=== PATIENT | male | born 1940 | race Caucasian/White ===

== ENCOUNTER → 2017-08-02 14:29 | Outpatient (POV) | payer MEDICARE, SELFPAY | PROVIDERS: Family Provider Family Medicine; PCP Family Medicine; Visit Provider Dermatology | DX: Z00.00 Encounter for general adult medical examination without abnormal findings (principal) ==

== ENCOUNTER → 2017-12-06 08:40 | Outpatient (CLI) | payer MEDICARE, SELFPAY | PROVIDERS: Family Provider Family Medicine; PCP Family Medicine; Visit Provider Family Medicine | DX: I20.8 Other forms of angina pectoris (principal); E11.65 Type 2 diabetes mellitus with hyperglycemia | CPT/HCPCS: 93017 ==

== ENCOUNTER → 2018-08-06 10:12 | Outpatient (POV) | payer MEDICARE, SELFPAY | PROVIDERS: Visit Provider Dermatology | DX: Z00.00 Encounter for general adult medical examination without abnormal findings (principal) ==

== ENCOUNTER → 2018-09-03 08:57 | Outpatient (POV) | payer MEDICARE, SELFPAY | PROVIDERS: Visit Provider Dermatology | DX: Z00.00 Encounter for general adult medical examination without abnormal findings (principal) ==

== ENCOUNTER → 2018-12-07 10:32 | Outpatient (CLI) | payer MEDICARE, SELFPAY ==
--- NOTE | 2018-12-07 10:44 | XR_ITS ---
XR shoulder RT min 2V HISTORY: ITS.REASON: acute pain of right shoulder ORDERING PHYSICIAN: Bridget Fernandez APRN PATIENT AGE: 78 years FINDINGS: There are mild osteoarthritic changes of the right acromioclavicular joint with subacromial stenosis which may result in impingement symptomatology. Minimal osteoarthritic change glenohumeral joint. No significant change from 11/09/2015. 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
== END ==
PROVIDERS: PCP Family Medicine; Visit Provider Nurse Practitioner
DX: M25.511 Pain in right shoulder (principal)
CPT/HCPCS: 73030

== ENCOUNTER → 2019-02-06 14:58 | Outpatient (CLI) | payer MEDICARE, SELFPAY ==
--- NOTE | 2019-02-06 15:13 | CT_ITS ---
PROCEDURE: CT ABDOMEN PELVIS WO CON CLINICAL HISTORY: RT FLANK PAIN,H/O STONES Right flank pain COMPARISON: No exams were available for comparison TECHNIQUE: Axial images obtained with sagittal and coronal reformats. All CT scans at the facility use one or more dose reduction, viz: automated exposure control, ma/kV adjustment per patient size (including targeted exams where dose is matched to indication, i.e. head), or iterative reconstruction technique. FINDINGS: There is mild fatty liver infiltration. No focal liver lesions identified. The gallbladder, spleen, adrenal glands, and pancreas have an unremarkable appearance. No renal or ureteral calculi. There are few small nodes in the perigastric region. The stomach has an unremarkable appearance. Unremarkable appendix. No intestinal obstruction or free air is evident. The there are few diverticula of the colon but no evidence of diverticulitis. There is a tiny umbilical hernia containing fat. The prostate is enlarged at 7.6 x 5.7 cm. A faint area of increased density is present along the posterior urinary bladder wall on the left and could be due to small stone or calcification within the wall of the urinary bladder. There are degenerative changes of lumbar spine with old wedge compression changes of L2. IMPRESSION: 1. No acute abdominal or pelvic findings 2. Enlarged prostate 3. Small area of calcification along the urinary bladder wall on the left posteriorly and may be due to recently passed stone versus faint calcification in the wall the urinary bladder. Dictated by: Kev Bhardwaj MD 02/07/2019 06:19 Electronically signed by Kev Bhardwaj MD in [place] 02/07/2019 06:19
== END ==
PROVIDERS: PCP Family Medicine; Visit Provider Family Medicine
DX: R10.9 Unspecified abdominal pain (principal); Z87.442 Personal history of urinary calculi
CPT/HCPCS: 74176

== ENCOUNTER → 2019-07-31 15:40 | Outpatient (CLI) | payer MEDICARE, SELFPAY ==
--- NOTE | 2019-07-31 15:43 | CA_ITS ---
APPROVED REPORT Bilateral Lower Extremity Venous Study for DVT. Sock Folder: TONI Indications Lower Extremity Pain: Lower Extremity Edema: Left Edema Vein Imaging CFV (L): compressive, spontaneous, phasic, augmentation SFJ (L): compressive, spontaneous, phasic, augmentation FEM (L): compressive, spontaneous, phasic, augmentation POP (L): compressive, spontaneous, phasic, augmentation DFV (L): compressive, spontaneous, phasic, augmentation PTV (L): Compressible GSV (L): Compressible Peroneals (L):Compressible Findings SMALL SUPERFICIAL THROMBUS AT ANKLE AREA NEAGATIVE FOR DVT OR OTHER SVT'S CALLED REPORT TO MD OCTAVIO Conclusion SMALL SUPERFICIAL THROMBUS AT ANKLE AREA NEAGATIVE FOR DVT OR OTHER SVT'S Electronically signed by : Kev Bhardwaj MD 07/31/2019 17:44:06
== END ==
PROVIDERS: PCP Family Medicine; Visit Provider Podiatrist
DX: R60.0 Localized edema (principal); R09.89 Other specified symptoms and signs involving the circulatory and respiratory systems
CPT/HCPCS: 93971

== ENCOUNTER → 2019-08-06 10:49 | Outpatient (CLI) | payer MEDICARE, SELFPAY ==
--- NOTE | 2019-08-06 10:51 | US_ITS ---
APPROVED REPORT Exam Type: Lower Extremity Segmental Pressures [employer] Administrator: Heavenly Pickens RDCS Indications Rest Pain: DECREASED PULSES Risk Factors Diabetes Pressures/Indices Right Indices Left Indices Brachial 200.00 mmHg Brachial 184.00 mmHg Low Thigh 194.00 mmHg 0.97 Low Thigh 180.00 mmHg 0.90 Calf 220.00 mmHg 1.10 Calf 0.00 mmHg 0.00 Ankle(PT) 218.00 mmHg 1.09 Ankle(PT) 193.00 mmHg 0.97 Ankle(DP) 196.00 mmHg 0.98 Ankle(DP) 168.00 mmHg 0.84 Digit 101.00 mmHg 0.51 Digit 101.00 mmHg 0.51 Findings R DALILA 1.1 L DALILA 1.0 R TBI .5 L TBI .5 DIMINISHED PULSES AT DORSALIS PEDIS OTHERWISE NORMAL PULSES NORMAL WAVEFORMS Conclusion Normal DALILA's Slightly low TBI's suggesting small vessel disease Electronically signed by : Kev Bhardwaj MD 08/06/2019 19:56:55
== END ==
PROVIDERS: PCP Family Medicine; Visit Provider Podiatrist
DX: R09.89 Other specified symptoms and signs involving the circulatory and respiratory systems (principal)
CPT/HCPCS: 93923

== ENCOUNTER → 2019-10-21 08:25 | Outpatient (POV) | payer MEDICARE, SELFPAY | PROVIDERS: PCP Family Medicine; Visit Provider Physician Assistant | DX: Z00.00 Encounter for general adult medical examination without abnormal findings (principal) ==

== ENCOUNTER → 2020-05-25 12:59 | Outpatient (CLI) | payer MEDICARE, SELFPAY ==
[2020-05-25 13:43] LABS: Basophils # 0.1 K/mm3 (0-0.2); Eosinophils # 0.1 K/mm3 (0.0-0.4); Eosinophils % 2.5 % (0.1-12.0); Hematocrit 48.5 % (42.0-52.0); Hemoglobin 16.1 g/dL (14.1-18.0); Lymphocytes # 1.4 K/mm3 (0.7-4.5); Lymphocytes % 26.3 % (10-50); Mean Corpuscular HGB Conc 33.3 g/dL (31.8-35.4); Mean Corpuscular Hemoglobin 32.4 pg (27.0-31.2); Mean Corpuscular Volume 97.4 fl (80-94); Mean Platelet Volume 8.5 fl (7.4-10.4); Monocytes # 0.3 K/mm3 (0.1-1.0); Monocytes % 5.9 % (1.7-9.3); Neutrophils # 3.3 K/mm3 (1.8-7.8); Neutrophils % 64.3 % (37.0-80.0); Platelet Count 175 K/mm3 (142-424); Red Blood Count 4.98 M/mm3 (4.60-6.20); Red Cell Distribution Width 14.1 % (11.5-17.5); White Blood Count 5.2 K/mm3 (4.8-10.8)
[2020-05-25 13:46] LABS: Chloride 106 mmol/L (98-107); Potassium 4.7 mmoL/L (3.5-5.1); Sodium 142 mmol/L (136-145)
[2020-05-25 13:48] LABS: Blood Urea Nitrogen 16 mg/dl (9-20); Estimated Glomerular Filt Rate 59 ml/min (>60); GFR (African American) 71 ML/MIN (>60)
[2020-05-25 13:49] LABS: Alanine Aminotransferase 27 U/L (12-78); Albumin Level 4.7 g/dl (3.5-5.0); Albumin/Globulin Ratio 1.6 (1.1-1.8); Alkaline Phosphatase 58 U/L (38-126); Anion Gap 11.7 mEq/L (5-15); Aspartate Amino Transferase 25 U/L (17-59); Bilirubin,Total 0.9 mg/dl (0.2-1.3); Calcium 9.7 mg/dl (8.4-10.2); Carbon Dioxide 29 mmol/L (22.0-30.0); Cholesterol 147 mg/dl (140-200); Globulin 2.9 g/dL (1.3-3.2); Glucose 138 mg/dl (74-100); HDL Cholesterol 37 mg/dl (40-60); Total Protein,Serum 7.6 g/dl (6.3-8.2); Triglycerides 223 mg/dl (30-150); VLDL Cholesterol 45 mg/dL (0-40)
[2020-05-25 14:00] LABS: Direct LDL Cholesterol 73.84 mg/dL (100-129)
[2020-05-25 15:02] LABS: Hemoglobin A1C 7.2 % (4.0-6.0)
== END ==
PROVIDERS: Visit Provider Internal Medicine Adolescent Medicine
DX: E11.9 Type 2 diabetes mellitus without complications (principal); Z79.84 Long term (current) use of oral hypoglycemic drugs
CPT/HCPCS: 36415; 80053; 80061; 83036; 85025

== ENCOUNTER → 2020-05-27 08:15 | Outpatient (CLI) | payer MEDICARE, SELFPAY ==
--- NOTE | 2020-05-27 08:18 | CT_ITS ---
PROCEDURE: CT HEAD/BRAIN WO CON CLINICAL INDICATION: LT SIDED WEAKNESS COMPARISON: No exams were available for comparison TECHNIQUE: Axial images obtained. All CT scans at the facility use one or more dose reduction, viz: automated exposure control, ma/kV adjustment per patient size (including targeted exams where dose is matched to indication, i.e. head), or iterative reconstruction technique. FINDINGS: No midline shift, mass effect, intracranial hemorrhage, hydrocephalus, or extra-axial fluid collection is evident. There is generalized atrophy with hypoattenuation of the periventricular white matter consistent with microangiopathic changes. There are intracranial vascular calcifications noted the calvarium has an unremarkable appearance. No mastoid effusion. There is mucosal thickening of the sphenoid sinus. IMPRESSION: No acute intracranial finding Dictated by: Kev Bhardwaj MD 05/27/2020 08:52 Kev Bhardwaj MD in [place] 05/27/2020 08:52
== END ==
PROVIDERS: PCP Internal Medicine Adolescent Medicine; Visit Provider Internal Medicine Adolescent Medicine
DX: R53.1 Weakness (principal)
CPT/HCPCS: 70450

== ENCOUNTER → 2020-10-19 16:32 | Outpatient (CLI) | payer MEDICARE, SELFPAY ==
[2020-10-19 17:22] LABS: Hemoglobin A1C 7.3 % (4.0-6.0)
[2020-10-19 17:24] LABS: Chloride 104 mmol/L (98-107)
[2020-10-19 17:25] LABS: Potassium 4.4 mmoL/L (3.5-5.1); Sodium 138 mmol/L (136-145)
[2020-10-19 17:27] LABS: Alanine Aminotransferase 25 U/L (12-78); Aspartate Amino Transferase 26 U/L (17-59); Bilirubin,Total 0.7 mg/dl (0.2-1.3); Blood Urea Nitrogen 16 mg/dl (9-20); Estimated Glomerular Filt Rate 72 ml/min (>60); GFR (African American) 88 ML/MIN (>60)
[2020-10-19 17:28] LABS: Albumin Level 4.6 g/dl (3.5-5.0); Albumin/Globulin Ratio 1.8 (1.1-1.8); Alkaline Phosphatase 81 U/L (38-126); Anion Gap 13.4 mEq/L (5-15); Calcium 9.3 mg/dl (8.4-10.2); Carbon Dioxide 25 mmol/L (22.0-30.0); Globulin 2.5 g/dL (1.3-3.2); Glucose 161 mg/dl (74-100); Total Protein,Serum 7.1 g/dl (6.3-8.2)
[2020-10-19 17:58] LABS: Thyroid Stimulating Hormone 1.85 uIU/mL (0.465-4.68)
== END ==
PROVIDERS: Visit Provider Internal Medicine Adolescent Medicine
DX: E11.9 Type 2 diabetes mellitus without complications (principal); R53.83 Other fatigue; Z79.84 Long term (current) use of oral hypoglycemic drugs
CPT/HCPCS: 36415; 80053; 83036; 84443

== ENCOUNTER → 2020-11-02 12:15 | Outpatient (CLI) | payer MEDICARE, SELFPAY | LOC: RT 12:19 → SL 13:22 | PROVIDERS: PCP Internal Medicine Adolescent Medicine; Visit Provider Internal Medicine Adolescent Medicine | DX: G47.33 Obstructive sleep apnea (adult) (pediatric) (principal); R40.0 Somnolence | CPT/HCPCS: G0399 ==

== ENCOUNTER → 2021-02-01 09:33 | Outpatient (CLI) | payer MEDICARE, SELFPAY ==
[2021-02-01 10:41] LABS: Hemoglobin A1C 7.3 % (4.0-6.0)
[2021-02-01 11:07] LABS: Alanine Aminotransferase 25 U/L (12-78); Albumin/Globulin Ratio 1.7 (1.1-1.8); Alkaline Phosphatase 66 U/L (38-126); Anion Gap 16.3 mEq/L (5-15); Aspartate Amino Transferase 22 U/L (17-59); Bilirubin,Total 0.8 mg/dl (0.2-1.3); Blood Urea Nitrogen 13 mg/dl (9-20); Calcium 8.8 mg/dl (8.4-10.2); Carbon Dioxide 24 mmol/L (22.0-30.0); Chloride 101 mmol/L (98-107); Chol/HDL Ratio 4.2 (1-3.5); Cholesterol 130 mg/dl (140-200); Estimated Glomerular Filt Rate 93 ml/min (>60); GFR (African American) 113 ML/MIN (>60); Globulin 2.4 g/dL (1.3-3.2); Glucose 239 mg/dl (74-100); HDL Cholesterol 31 mg/dl (40-60); Potassium 4.3 mmoL/L (3.5-5.1); Sodium 137 mmol/L (136-145); Total Protein,Serum 6.4 g/dl (6.3-8.2); Triglycerides 198 mg/dl (30-150); VLDL Cholesterol 40 mg/dL (0-40)
[2021-02-01 11:17] LABS: Direct LDL Cholesterol 68.07 mg/dL (100-129)
== END ==
PROVIDERS: Visit Provider Internal Medicine Adolescent Medicine
DX: E11.9 Type 2 diabetes mellitus without complications (principal); Z79.84 Long term (current) use of oral hypoglycemic drugs
CPT/HCPCS: 36415; 80053; 80061; 83036

== ENCOUNTER → 2021-02-08 12:35 | Outpatient (CLI) | payer MEDICARE, SELFPAY ==
[2021-02-08 13:30] VITALS: PULSE 64; PULSE 66
== END ==
PROVIDERS: PCP Internal Medicine Adolescent Medicine; Visit Provider Internal Medicine Adolescent Medicine
DX: R06.02 Shortness of breath (principal)
CPT/HCPCS: 94060; 94640; 94727; 94729

== ENCOUNTER → 2021-02-14 13:21 | Outpatient (CLI) | payer MEDICARE, SELFPAY | PROVIDERS: PCP Internal Medicine Adolescent Medicine; Visit Provider Nurse Practitioner | DX: Z20.822 Contact with and (suspected) exposure to COVID-19 (principal) | CPT/HCPCS: C9803; U0003; U0005 ==

== ENCOUNTER → 2021-03-18 14:36 | Outpatient (CLI) | payer MEDICARE, SELFPAY ==
--- NOTE | 2021-03-18 14:39 | XR_ITS ---
PROCEDURE: XR KNEE LT 3V CLINICAL INDICATION: LT knee pain COMPARISON: CR [id number] KNEE-LIMITED 2 VIEWS-LT from 01/19/2015 CR [id number] KNEE-LIMITED 2 VIEWS-RT from 03/08/2015 CR [id number] KNEE-LIMITED 2 VIEWS-RT from 03/23/2015 CR [id number] KNEE-LIMITED 2 VIEWS-LT from 03/23/2016 FINDINGS: There has been a prior left medial hemiarthroplasty which appears in good position with no obvious orthopedic complications. There are moderate ostial arthritic changes of the left knee with cyst spurs at the tibial spines noted. There is a 7 mm calcific density projecting over posterior lateral aspect of the knee consistent with a loose body. There are numerous calcifications posterior to the distal femur also suspicious for loose calcific bodies. There is a small knee joint effusion. Moderate osteoarthritic changes are present at the patellofemoral joint and has progressed since the previous exam. An additional loose body noted just medial to the medial tibial spine. IMPRESSION: Status post medial desire arthroplasty with no obvious orthopedic complications. Progressing osteoarthritis with multiple loose bodies medially which have developed since the previous exam Dictated by: Kev Bhardwaj MD 03/18/2021 15:35 Kev Bhardwaj MD in [place] 03/18/2021 15:35
== END ==
PROVIDERS: PCP Internal Medicine Adolescent Medicine; Visit Provider Orthopaedic Surgery
DX: M25.562 Pain in left knee (principal)
CPT/HCPCS: 73562

== ENCOUNTER → 2021-03-18 15:51 | Outpatient (CLI) | payer MEDICARE, SELFPAY ==
[2021-03-18 16:18] LABS: Basophils # 0.1 K/mm3 (0-0.2); Basophils % 1.2 % (0.1-2.0); Eosinophils # 0.2 K/mm3 (0.0-0.4); Eosinophils % 2.3 % (0.1-12.0); Hemoglobin 15.8 g/dL (14.1-18.0); Lymphocytes # 1.6 K/mm3 (0.7-4.5); Lymphocytes % 23.6 % (10-50); Mean Corpuscular HGB Conc 33.7 g/dL (31.8-35.4); Mean Corpuscular Hemoglobin 32.8 pg (27.0-31.2); Mean Corpuscular Volume 97.3 fl (80-94); Mean Platelet Volume 9.3 fl (7.4-10.4); Monocytes # 0.3 K/mm3 (0.1-1.0); Monocytes % 4.9 % (1.7-9.3); Neutrophils # 4.7 K/mm3 (1.8-7.8); Platelet Count 188 K/mm3 (142-424); Red Blood Count 4.83 M/mm3 (4.60-6.20); Red Cell Distribution Width 13.8 % (11.5-17.5); White Blood Count 6.9 K/mm3 (4.8-10.8)
[2021-03-18 16:39] LABS: Chloride 101 mmol/L (98-107); Potassium 4.5 mmoL/L (3.5-5.1); Sodium 141 mmol/L (136-145)
[2021-03-18 16:41] LABS: Alanine Aminotransferase 24 U/L (12-78); Aspartate Amino Transferase 26 U/L (17-59); Blood Urea Nitrogen 10 mg/dl (9-20); Estimated Glomerular Filt Rate 93 ml/min (>60); GFR (African American) 113 ML/MIN (>60)
[2021-03-18 16:42] LABS: Albumin Level 4.6 g/dl (3.5-5.0); Albumin/Globulin Ratio 1.6 (1.1-1.8); Alkaline Phosphatase 79 U/L (38-126); Anion Gap 13.5 mEq/L (5-15); Bilirubin,Total 0.9 mg/dl (0.2-1.3); Calcium 9.6 mg/dl (8.4-10.2); Carbon Dioxide 31 mmol/L (22.0-30.0); Globulin 2.8 g/dL (1.3-3.2); Glucose 172 mg/dl (74-100); Total Protein,Serum 7.4 g/dl (6.3-8.2)
[2021-03-18 16:46] LABS: Erythrocyte Sedimentation Rate 6 mm/hr (0-20)
[2021-03-18 16:48] LABS: C-Reactive Protein 1.2 mg/L (0-4)
== END ==
PROVIDERS: Visit Provider Orthopaedic Surgery
DX: M25.562 Pain in left knee (principal); Z96.652 Presence of left artificial knee joint
CPT/HCPCS: 36415; 73562; 80053; 85025; 85651; 86140

== ENCOUNTER 2021-07-14 02:03 | Emergency (ER) | payer MEDICARE, SELFPAY ==
[2021-07-14 02:04] VITALS: BP 179/78; PULSE 57; RESP 17; TEMP 36.9; O2SAT 96; BMI 29.8
--- NOTE | 2021-07-14 02:05 | ECG_ITS ---
APPROVED REPORT Exam: Resting ECG HR:58 bpm ECG Measurements Heart Rate 58 AXES TN 187 P 59 QRSd 102 QRS 31 QT 389 T 56 QTc 385 Conclusion SINUS BRADYCARDIA LOW QRS VOLTAGE IN PRECORDIAL LEADS [QRS DEFLECTION < 1.0 mV IN CHEST LEADS] BORDERLINE ECG UNCONFIRMED REPORT Electronically signed by : Fitz Hoang MD 07/14/2021 18:45:48
--- NOTE | 2021-07-14 02:30 | XR_ITS ---
PROCEDURE INFORMATION: Exam: XR Chest Exam date and time: 07/14/2021 2:30 AM Age: 80 years old Clinical indication: Sternal or substernal pain; Additional info: Cp TECHNIQUE: Imaging protocol: XR of the chest. Views: 2 views. COMPARISON: CR XR CHEST 2V 08/09/2019 6:48 PM FINDINGS: Lungs: Mild chronic parenchymal changes again identified. No consolidation. There is no evidence of pulmonary vascular congestion. Pleural spaces: Unremarkable. No pleural effusion. No pneumothorax. Heart/Mediastinum: Heart size is normal. The superior mediastinum is not widened. Bones/joints: Unremarkable. Bones/joints: Unremarkable. IMPRESSION: No evidence of acute intrathoracic disease. No interval change since 08/09/2019.
[2021-07-14 02:56] LABS: Coronavirus 19, PCR Not Detected (NotDetected); Influenza A, PCR Not Detected (NotDetected); Influenza B, PCR Not Detected (NotDetected)
--- NOTE | 2021-07-14 02:58 | HMH.EDCP ---
ED Disposition Clinical Impression: Chest pain Qualifiers: Chest pain type: unspecified Qualified Code(s): R07.9 - Chest pain, unspecified Disposition: Home, Self-Care Condition on Discharge: Good Instructions: DI for Atypical Chest Pain Additional Instructions: call pcp this am for follow up Referrals: Alonso White MD [Primary Care Provider] - - Critical Care Critical Care Time: No Attestation: On 07/14/21, the high probability of a clinically significant, sudden or life threatening deterioration of the following system(s) required my full and direct attention, intervention and personal management. The time I documented below is in addition to time spent performing reported procedures but includes the following listed in this critical care notation. Medical Decision Making - Medical Records Medical records reviewed: Yes: I reviewed the patient's medical records. - Sujit Inquiry Pt receiving controlled substance: No Vital Signs: 07/14/21 02:04 Temperature 98.4 F Temperature Source Oral Pulse Rate [Right] 57 L Respiratory Rate 17 Blood Pressure [Right Arm] 179/78 H Blood Pressure Mean [Right Arm] 111 Blood Pressure Source [Right Arm] Automatic Cuff 02 Sat by Pulse Oximetry 96 Oxygen Delivery Method Room Air - Lab Data Lab results reviewed: Yes: I reviewed the patient's lab results. Lab Results 07/14/21 02:19: ESR 16 07/14/21 02:19: Troponin I < 0.01, C-Reactive Protein 1.9, Procalcitonin 0.052 07/14/21 02:19: WBC 4.4 L, RBC 4.30 L, Hgb 14.1, Hct 42.6, MCV 99.3 H, MCH 32.9 H, MCHC 33.1, RDW 13.6, Plt Count 149, MPV 8.8, Neut % (Auto) 56.5, Lymph % (Auto) 31.4, [place] % (Auto) 6.8, Eos % (Auto) 3.2, Baso % (Auto) 2.0, Neut # (Auto) 2.5, Lymph # (Auto) 1.4, [place] # (Auto) 0.3, Eos # (Auto) 0.1, Baso # (Auto) 0.1 07/14/21 02:19: Sodium 142, Potassium 4.2, Chloride 105, Carbon Dioxide 28, Anion Gap 13.2, BUN 22 H, Creatinine 0.90, Estimated Creat Clear 86, Estimated GFR 82, Est GFR ( Amer) 99, Glucose 186 H, Calcium 9.5, Magnesium 1.8, Total Bilirubin 0.9, AST 26, ALT 25, Alkaline Phosphatase 81, Total Protein 7.4, Albumin 4.7, Globulin 2.7, Albumin/Globulin Ratio 1.7 07/14/21 02:50: SARS-CoV-2 (PCR) Not detected, Influenza A Untype (PCR) Not detected, Influenza Type B (PCR) Not detected 07/14/21 05:20: Troponin I < 0.01 Result diagrams: 07/14/21 02:19 07/14/21 02:19 Orders (Tests/Meds): ED MEDICATIONS Generic Name Dose Route Start Last Admin Trade Name Freq PRN Reason Stop Dose Admin Sodium Chloride 1,000 mls @ 999 mls/hr 07/14/21 02:30 07/14/21 02:56 Sod Chlor 0.9% 1000ml Bag IV 07/14/21 03:30 999 mls/hr .Q1H1M SHARIF Administration Discontinued Medications Generic Name Dose Route Start Last Admin Trade Name Freq PRN Reason Stop Dose Admin Aspirin 324 mg 07/14/21 02:30 07/14/21 02:57 Aspirin Ec 81mg Tablet PO 07/14/21 02:31 324 mg ONCE ONE Administration ORDERS Category Date Time Status Troponin I Q3H Lab 07/14/21 08:30 Ordered Holter Monitor Req by Rowan/ Stat Y 07/14/21 06:14 Ordered - Radiology Data #1 Image(s): Chest Image Reviewed: Yes I have reviewed radiologist's interpretation Preliminary Findings: Normal/NAD - ECG Data Tracing #1 Normal Sinus Rhythm: Yes Ischemic changes: non-specific ST-T wave changes Medical Decision Narrative: has stable exam and and trop but has element of possible arrhythmia as episodes assoc with fast hr Chest Pain HPI - General Chief Complaint: Chest Pain Stated Complaint: CHEST PAIN Time Seen by Provider: 07/14/21 02:20 Mode of Arrival: Family Vehicle Source of Information: Patient, Medical Record Limitations: No Limitations Description of Symptoms (Recalled from ER Triage Doc. by RN): Pt c/o upper left chest wall and left shoulder pain that began at 2300. It awoke pt from sleep, he reports having a real funny feeling , stating this happens sometimes and I usually walk outside and the
[2021-07-14 03:04] LABS: Alanine Aminotransferase 25 U/L (12-78); Albumin Level 4.7 g/dl (3.5-5.0); Albumin/Globulin Ratio 1.7 (1.1-1.8); Alkaline Phosphatase 81 U/L (38-126); Anion Gap 13.2 mEq/L (5-15); Aspartate Amino Transferase 26 U/L (17-59); Bilirubin,Total 0.9 mg/dl (0.2-1.3); Blood Urea Nitrogen 22 mg/dl (9-20); Calcium 9.5 mg/dl (8.4-10.2); Carbon Dioxide 28 mmol/L (22.0-30.0); Chloride 105 mmol/L (98-107); Creatinine Clearance Estimated 86 mL/min (50-200); Estimated Glomerular Filt Rate 82 ml/min (>60); GFR (African American) 99 ML/MIN (>60); Globulin 2.7 g/dL (1.3-3.2); Glucose 186 mg/dl (74-100); Magnesium 1.8 mg/dl (1.6-2.3); Potassium 4.2 mmoL/L (3.5-5.1); Sodium 142 mmol/L (136-145); Total Protein,Serum 7.4 g/dl (6.3-8.2)
[2021-07-14 03:08] LABS: C-Reactive Protein 1.9 mg/L (0-4)
[2021-07-14 03:11] LABS: Basophils # 0.1 K/mm3 (0-0.2); Eosinophils # 0.1 K/mm3 (0.0-0.4); Eosinophils % 3.2 % (0.1-12.0); Hematocrit 42.6 % (42.0-52.0); Hemoglobin 14.1 g/dL (14.1-18.0); Lymphocytes # 1.4 K/mm3 (0.7-4.5); Lymphocytes % 31.4 % (10-50); Mean Corpuscular HGB Conc 33.1 g/dL (31.8-35.4); Mean Corpuscular Hemoglobin 32.9 pg (27.0-31.2); Mean Corpuscular Volume 99.3 fl (80-94); Mean Platelet Volume 8.8 fl (7.4-10.4); Monocytes # 0.3 K/mm3 (0.1-1.0); Monocytes % 6.8 % (1.7-9.3); Neutrophils # 2.5 K/mm3 (1.8-7.8); Neutrophils % 56.5 % (37.0-80.0); Platelet Count 149 K/mm3 (142-424); Red Cell Distribution Width 13.6 % (11.5-17.5); White Blood Count 4.4 K/mm3 (4.8-10.8)
[2021-07-14 03:22] LABS: Procalcitonin 0.052 ng/mL (0.0-2.0)
[2021-07-14 03:25] LABS: Troponin I < 0.01 ng/ml (0.00-0.034)
[2021-07-14 04:08] LABS: Erythrocyte Sedimentation Rate 16 mm/hr (0-20)
[2021-07-14 05:51] LABS: Troponin I < 0.01 ng/ml (0.00-0.034)
--- NOTE | 2021-07-14 05:57 | PC.NURSE ---
paged Dr. Hoang at this time
--- NOTE | 2021-07-14 06:17 | PC.NURSE ---
respiratory at bedside placing pt on holter monitor
--- NOTE | 2021-07-14 06:17 | PC.NURSE ---
paging Dr. Hoang, 2nd attempt
[2021-07-14 06:35] VITALS: BP 151/76; PULSE 46; RESP 12; TEMP 36.8; O2SAT 94
== END 2021-07-14 06:35 | disposition home or self-care (01) ==
PROVIDERS: Emergency Provider Emergency Medicine; PCP Internal Medicine Adolescent Medicine
DX: R07.9 Chest pain, unspecified (principal); M25.512 Pain in left shoulder; E11.9 Type 2 diabetes mellitus without complications; E78.5 Hyperlipidemia, unspecified; I10 Essential (primary) hypertension; Z79.899 Other long term (current) drug therapy
CPT/HCPCS: 71046; 80053; 83735; 84145; 84484; 85025; 85651; 86140; 93005; 93225; 93226; 96365; 99283; C9803; U0003; U0005

== ENCOUNTER 2021-08-10 01:19 | Emergency (ER) | payer MEDICARE, SELFPAY ==
--- NOTE | 2021-08-10 01:29 | CT_ITS ---
PROCEDURE INFORMATION: Exam: CT Abdomen And Pelvis With Contrast Exam date and time: 08/10/2021 1:29 AM Age: 80 years old Clinical indication: Abdominal pain; Patient HX: Right sided flank pain. Denies noticing any blood in urine. HX of right sided kidney stones TECHNIQUE: Imaging protocol: Computed tomography of the abdomen and pelvis with contrast. Radiation optimization: All CT scans at this facility use at least one of these dose optimization techniques: automated exposure control; mA and/or kV adjustment per patient size (includes targeted exams where dose is matched to clinical indication); or iterative reconstruction. Contrast material: ISOVUE; Contrast volume: 75 ml; Contrast route: IV; COMPARISON: CT ABDOMEN PELVIS WO CON 02/06/2019 3:38 PM FINDINGS: Lungs: No mass/infiltrate at either lung base. No pleural effusion. Linear atelectasis or scarring at the left lung base.There are calcifications identified within the the left coronary artery. Liver: The liver is normal in size and attenuation. No intrahepatic biliary dilitation. Gallbladder and bile ducts: Normal. No calcified stones. No ductal dilation. Gallbladder wall thickness is normal. Pancreas: Normal. No ductal dilation. Spleen: Normal. No splenomegaly. Adrenal glands: Normal. No mass. Kidneys and ureters: Normal. No hydronephrosis. Stomach and bowel: Unremarkable. No obstruction. No mucosal thickening. Small bowel mesentery is normal. Appendix: Unremarkable. Intraperitoneal space: Unremarkable. No free air. No significant fluid collection. Vasculature: Arterial atheromatous calcifications are noted. No abdominal aortic aneurysm. There are calcified phleboliths within the pelvis. Lymph nodes: Unremarkable. No enlarged lymph nodes. Urinary bladder: Unremarkable as visualized. Limited volume noted. Reproductive: Prostatic enlargement is noted. The prostate measures 7.3 x 6.9 x 6.9 cm. Prostatic volume is estimated at 182 mL, (normal is 40 mL or less). Bones/joints: Age-indeterminate mild superior endplate compression deformity of L2. There are degenerative changes within the thoracic and lumbar spine. Soft tissues: There is a left inguinal hernia which contains fat. IMPRESSION: 1. Prominent prostatic enlargement is noted. 2. Age-indeterminate superior endplate compression deformity of L2. 3. There is a left inguinal hernia which contains fat.
[2021-08-10 01:33] LABS: Microscopic, Urine URINE MICROSCOPIC (MICROSCOPIC)
--- NOTE | 2021-08-10 01:34 | HMH.EDGENADL ---
ED Disposition Clinical Impression: Right flank pain Right low back pain Qualifiers: Chronicity: acute Sciatica presence: without sciatica Qualified Code(s): M54.50 - Low back pain, unspecified Disposition: Home, Self-Care Condition on Discharge: Good Instructions: DI for Low Back Pain, DI for Flank Pain Additional Instructions: You have been evaluated for right-sided low back, flank pain. Please take anti-inflammatory medications every 6 hours like ibuprofen or naproxen. Use topical anti-inflammatory medication or Lidoderm patches. Use stretching and heat. Follow-up with your primary care doctor. Return to the emergency department for any new or worsening symptoms. Prescriptions: Lidocaine [Lidoderm 5% transdermal patch] 1 each TP Q24H PRN #5 patch PRN Reason: Mild Pain Transmission Status: Pending to [facility] Naproxen [Naproxen 500mg tab] 500 mg PO Q6 PRN #30 tab PRN Reason: Moderate Pain Transmission Status: Pending to [facility] Referrals: Alonso Wihte MD [Primary Care Provider] - Time of Disposition: 02:53 - Critical Care Critical Care Time: No Attestation: On , the high probability of a clinically significant, sudden or life threatening deterioration of the following system(s) required my full and direct attention, intervention and personal management. The time I documented below is in addition to time spent performing reported procedures but includes the following listed in this critical care notation. Medical Decision Making - Medical Records Medical records reviewed: Yes: I reviewed the patient's medical records. - Sujit Inquiry Pt receiving controlled substance: No Vital Signs: 08/10/21 01:44 Temperature 99.1 F Temperature Source Oral Pulse Rate [Apical] 67 Respiratory Rate 18 Blood Pressure [Right Arm] 143/79 H Blood Pressure Mean [Right Arm] 100 Blood Pressure Source [Right Arm] Automatic Cuff Blood Pressure Position [Right Arm] Sitting 02 Sat by Pulse Oximetry 98 Oxygen Delivery Method Room Air - Lab Data Lab Results 08/10/21 01:30: Urine Color Yellow, Urine Appearance Clear, Urine pH 5.5, Ur Specific [place] >= 1.030, Urine Protein Negative, Urine Glucose (UA) 2+, Urine Ketones Negative, Urine Blood Negative, Urine Nitrate Negative, Urine Bilirubin Negative, Urine Urobilinogen 0.2, Ur Leukocyte Esterase Negative, Urine RBC 3-5, Urine WBC Occasional, Urine Bacteria Trace, Urine Mucus Trace 08/10/21 01:38: WBC 6.5, RBC 4.69, Hgb 15.3, Hct 46.5, MCV 99.3 H, MCH 32.7 H, MCHC 33.0, RDW 13.6, Plt Count 165, MPV 9.1, Neut % (Auto) 64.2, Lymph % (Auto) 25.7, [place] % (Auto) 6.1, Eos % (Auto) 2.1, Baso % (Auto) 1.9, Neut # (Auto) 4.2, Lymph # (Auto) 1.7, [place] # (Auto) 0.4, Eos # (Auto) 0.1, Baso # (Auto) 0.1 08/10/21 01:38: Sodium 136, Potassium 3.9, Chloride 101, Carbon Dioxide 29, Anion Gap 9.9, BUN 23 H, Creatinine 1.00, Estimated Creat Clear 74, Estimated GFR 72, Est GFR ( Amer) 87, Glucose 224 H, Calcium 8.3 L, Total Bilirubin 0.7, AST 25, ALT 26, Alkaline Phosphatase 94, Total Protein 7.0, Albumin 4.5, Globulin 2.5, Albumin/Globulin Ratio 1.8 Result diagrams: 08/10/21 01:38 08/10/21 01:38 Orders (Tests/Meds): ED MEDICATIONS Discontinued Medications Generic Name Dose Route Start Last Admin Trade Name Freq PRN Reason Stop Dose Admin Iopamidol 75 ml 08/10/21 02:20 08/10/21 02:22 Iopamidol-370 (76%);100ml Bottle IV 08/10/21 02:21 75 ml ONCE ONE Administration Ketorolac Tromethamine 15 mg 08/10/21 01:29 08/10/21 01:35 Ketorolac 30mg/Ml Vial IV 08/10/21 01:30 15 mg ONCE ONE Administration Sodium Chloride 10 ml 08/10/21 02:20 08/10/21 02:22 Sodium Chloride 0.9% 10ml Syr (Rad Only) IV 08/10/21 02:21 10 ml ONCE ONE Administration Medical Decision Narrative: In summary this is a 80-year-old male presenting to the emergency department with right-sided flank, low back pain. Patient clinically
[2021-08-10 01:38] LABS: Appearance,Urine CLEAR (Clear); Bilirubin,Urine Negative (Negative); Blood, Urine Negative (Negative); Color,Urine YELLOW (Yellow); Glucose,Urine (UA) 2+ (Negative); Ketones,Urine Negative (Negative); Leukocyte Esterase,Urine Negative (Negative); Nitrate,Urine Negative (Negative); PH,Urine 5.5 (5.0-8.5); Protein,Urine Negative (Negative); Specific Gravity, Urine >= 1.030 (1.005-1.030); Urobilinogen,Urine 0.2 EU/dl (0.2)
[2021-08-10 01:44] VITALS: BP 143/79; PULSE 67; RESP 18; TEMP 37.3; O2SAT 98; BMI 26.4
[2021-08-10 01:49] LABS: Bacteria,Urine Trace /lpf; Mucus,Urine Trace /lpf; WBC,Urine Occasional #/hpf (0-3)
[2021-08-10 01:51] LABS: Chloride 101 mmol/L (98-107); Potassium 3.9 mmoL/L (3.5-5.1); Sodium 136 mmol/L (136-145)
[2021-08-10 01:52] LABS: Basophils # 0.1 K/mm3 (0-0.2); Basophils % 1.9 % (0.1-2.0); Eosinophils # 0.1 K/mm3 (0.0-0.4); Eosinophils % 2.1 % (0.1-12.0); Hematocrit 46.5 % (42.0-52.0); Hemoglobin 15.3 g/dL (14.1-18.0); Lymphocytes # 1.7 K/mm3 (0.7-4.5); Lymphocytes % 25.7 % (10-50); Mean Corpuscular Hemoglobin 32.7 pg (27.0-31.2); Mean Corpuscular Volume 99.3 fl (80-94); Mean Platelet Volume 9.1 fl (7.4-10.4); Monocytes # 0.4 K/mm3 (0.1-1.0); Monocytes % 6.1 % (1.7-9.3); Neutrophils # 4.2 K/mm3 (1.8-7.8); Neutrophils % 64.2 % (37.0-80.0); Platelet Count 165 K/mm3 (142-424); Red Blood Count 4.69 M/mm3 (4.60-6.20); Red Cell Distribution Width 13.6 % (11.5-17.5); White Blood Count 6.5 K/mm3 (4.8-10.8)
[2021-08-10 01:54] LABS: Alanine Aminotransferase 26 U/L (12-78); Albumin Level 4.5 g/dl (3.5-5.0); Albumin/Globulin Ratio 1.8 (1.1-1.8); Alkaline Phosphatase 94 U/L (38-126); Anion Gap 9.9 mEq/L (5-15); Aspartate Amino Transferase 25 U/L (17-59); Bilirubin,Total 0.7 mg/dl (0.2-1.3); Blood Urea Nitrogen 23 mg/dl (9-20); Calcium 8.3 mg/dl (8.4-10.2); Carbon Dioxide 29 mmol/L (22.0-30.0); Creatinine Clearance Estimated 74 mL/min (50-200); Estimated Glomerular Filt Rate 72 ml/min (>60); GFR (African American) 87 ML/MIN (>60); Globulin 2.5 g/dL (1.3-3.2); Glucose 224 mg/dl (74-100)
[2021-08-10 03:03] VITALS: BP 141/69; PULSE 68; RESP 16; TEMP 36.9; O2SAT 98
== END 2021-08-10 03:05 | disposition home or self-care (01) ==
PROVIDERS: Emergency Provider Emergency Medicine; PCP Internal Medicine Adolescent Medicine
DX: R20.0 Anesthesia of skin (principal); I10 Essential (primary) hypertension; E78.5 Hyperlipidemia, unspecified
CPT/HCPCS: 74177; 80053; 81001; 85025; 96374; 96375; 99284; Q9967

== ENCOUNTER → 2021-10-04 08:07 | Outpatient (POV) | payer MEDICARE, SELFPAY | PROVIDERS: Visit Provider Dermatology | DX: Z00.00 Encounter for general adult medical examination without abnormal findings (principal) ==

== ENCOUNTER → 2021-10-25 08:01 | Outpatient (POV) | payer MEDICARE, SELFPAY | PROVIDERS: Visit Provider Dermatology | DX: Z00.00 Encounter for general adult medical examination without abnormal findings (principal) ==

== ENCOUNTER → 2021-11-08 07:58 | Outpatient (POV) | payer MEDICARE, SELFPAY | PROVIDERS: Visit Provider Dermatology | DX: Z00.00 Encounter for general adult medical examination without abnormal findings (principal) ==

== ENCOUNTER → 2021-11-08 12:31 | Outpatient (CLI) | payer MEDICARE, SELFPAY ==
--- NOTE | 2021-11-08 12:33 | XR_ITS ---
FINAL REPORT CLINICAL HISTORY: LT knee pain COMPARISON: March 18, 2021 FINDINGS: LEFT KNEE 3 views of the left knee were obtained. There are postoperative changes from medial compartment arthroplasty. There is no acute fracture or dislocation. Visualized joint spaces are normally aligned. There is moderate degenerative change at the lateral patellofemoral joint. There are probable loose bodies posteriorly, similar to the prior. There is a moderate joint effusion. IMPRESSION: Degenerative change without acute bony abnormality. Reviewed, Interpreted and Dictated by Huber Olivier III, MD Transcribed by Cinda Rodgers Authenticated and [facility]
== END ==
PROVIDERS: PCP Internal Medicine Adolescent Medicine; Visit Provider Orthopaedic Surgery
DX: G89.29 Other chronic pain (principal); M17.12 Unilateral primary osteoarthritis, left knee; M23.42 Loose body in knee, left knee; M25.562 Pain in left knee; Z96.652 Presence of left artificial knee joint
CPT/HCPCS: 73564

== ENCOUNTER → 2021-11-14 08:29 | Outpatient (CLI) | payer MEDICARE, SELFPAY ==
[2021-11-14 08:35] LABS: Microscopic, Urine URINE MICROSCOPIC (MICROSCOPIC)
[2021-11-14 09:02] LABS: Appearance,Urine CLEAR (Clear); Bilirubin,Urine Negative (Negative); Blood, Urine Negative (Negative); Color,Urine YELLOW (Yellow); Glucose,Urine (UA) Negative (Negative); Ketones,Urine Negative (Negative); Leukocyte Esterase,Urine Negative (Negative); Nitrate,Urine Negative (Negative); PH,Urine 5.5 (5.0-8.5); Protein,Urine Negative (Negative); Specific Gravity, Urine >= 1.030 (1.005-1.030); Urobilinogen,Urine 0.2 EU/dl (0.2)
[2021-11-14 09:08] LABS: Basophils # 0.1 K/mm3 (0-0.2); Basophils % 1.6 % (0.1-2.0); Eosinophils # 0.1 K/mm3 (0.0-0.4); Eosinophils % 1.8 % (0.1-12.0); Hematocrit 45.9 % (42.0-52.0); Hemoglobin 15.5 g/dL (14.1-18.0); Lymphocytes # 1.4 K/mm3 (0.7-4.5); Lymphocytes % 27.4 % (10-50); Mean Corpuscular HGB Conc 33.8 g/dL (31.8-35.4); Mean Corpuscular Volume 97.6 fl (80-94); Mean Platelet Volume 8.9 fl (7.4-10.4); Monocytes # 0.3 K/mm3 (0.1-1.0); Monocytes % 5.7 % (1.7-9.3); Neutrophils # 3.3 K/mm3 (1.8-7.8); Neutrophils % 63.5 % (37.0-80.0); Platelet Count 161 K/mm3 (142-424); Red Cell Distribution Width 13.4 % (11.5-17.5); White Blood Count 5.3 K/mm3 (4.8-10.8)
[2021-11-14 09:26] LABS: Bacteria,Urine Trace /lpf; Squamous Epithelial Cell,Urine Occasional #/hpf (0-5)
[2021-11-14 09:28] LABS: Hemoglobin A1C 7.7 % (4.0-6.0)
[2021-11-14 09:36] LABS: Chloride 103 mmol/L (98-107); Potassium 4.6 mmoL/L (3.5-5.1); Sodium 138 mmol/L (136-145)
[2021-11-14 09:38] LABS: Alanine Aminotransferase 29 U/L (12-78); Alkaline Phosphatase 67 U/L (38-126); Aspartate Amino Transferase 26 U/L (17-59); Bilirubin,Total 0.8 mg/dl (0.2-1.3); Blood Urea Nitrogen 18 mg/dl (9-20); Estimated Glomerular Filt Rate 82 ml/min (>60); GFR (African American) 99 ML/MIN (>60)
[2021-11-14 09:39] LABS: Albumin Level 4.7 g/dl (3.5-5.0); Anion Gap 12.6 mEq/L (5-15); Calcium 9.9 mg/dl (8.4-10.2); Carbon Dioxide 27 mmol/L (22.0-30.0); Globulin 2.4 g/dL (1.3-3.2); Glucose 213 mg/dl (74-100); Total Protein,Serum 7.1 g/dl (6.3-8.2)
[2021-11-14 09:44] LABS: C-Reactive Protein 0.8 mg/L (0-4)
[2021-11-14 15:32] LABS: Erythrocyte Sedimentation Rate 11 mm/hr (0-20)
== END ==
PROVIDERS: PCP Internal Medicine Adolescent Medicine; Visit Provider Orthopaedic Surgery
DX: M17.12 Unilateral primary osteoarthritis, left knee (principal); Z96.652 Presence of left artificial knee joint; E11.9 Type 2 diabetes mellitus without complications; Z01.818 Encounter for other preprocedural examination; Z20.822 Contact with and (suspected) exposure to COVID-19; Z79.84 Long term (current) use of oral hypoglycemic drugs
CPT/HCPCS: 36415; 80053; 81001; 83036; 85025; 85651; 86140; 86850; C9803; U0003; U0005

== ENCOUNTER → 2021-11-19 10:45 | Outpatient (CLI) | payer MEDICARE, SELFPAY | PROVIDERS: PCP Internal Medicine Adolescent Medicine; Visit Provider Orthopaedic Surgery | DX: Z20.822 Contact with and (suspected) exposure to COVID-19 (principal) | CPT/HCPCS: C9803; U0003; U0005 ==

== ENCOUNTER 2021-11-21 13:48 | Inpatient (IN) | payer MEDICARE, SELFPAY ==
[2021-11-16 08:53] VITALS: BMI 28.8
--- NOTE | 2021-11-16 12:52 | SW/DCPLANNER ---
Addendum entered by Bisi Welsh 11/22/21 11:56: Galdino forman/ [facility] stated that they can accept this patient under their services. Per Neyda services will begin tomorrow for this patient. Addendum entered by Bisi Welsh 11/22/21 10:35: Patient information/order has been faxed to [facility]. Original Note: I spoke with this patient regarding upcoming knee replacement surgery. Patient stated that he resides at home with his and anticipates on returning home with once medically stable for discharge. I will follow up with this patient once surgery is completed and patient is admitted to [facility].
[2021-11-21] VITALS (20 sets, daily range): BP systolic 101–157; BP diastolic 58–77; PULSE 52–74; RESP 15–18; TEMP 36.1–43; O2SAT 89–97; BMI 29.8
[2021-11-21 07:05] LABS: POC Glucose,Bedside 159 (70-110)
[2021-11-21 07:15] LABS: Coronavirus 19, PCR Not Detected (NotDetected); Influenza A, PCR Not Detected (NotDetected); Influenza B, PCR Not Detected (NotDetected)
--- NOTE | 2021-11-21 09:25 | HMH.ANESCL ---
[facility] Anesthesia Checklist - Patient Identification Patient Identification: Arm Band - Structural Data Admitted From: Home Planned Operative Procedure/s: Left Total Knee Revision Consent for Planned Operative Procedure(s) Verified: Yes Verified Documents: Surgical Consent, History and Physical - NPO Status Verified Time NPO: 00:00 - Additional verifications Anesthesia Reactions: No Hx Blood Transfusions: No Blood Transfusion Reaction: No - Airway Assessment C-Spine Mobility Assessed: Yes (mp2) TMJ Mobility Assessed: Yes Dentition: Edentulous - Neurological Assessment Level of Consciousness: Awake, Alert - Anesthesia Plan Anesthesia Risk discussed: Yes Anesthesia Plan: Verified ASA Class: II Anesthesia Type: MAC w/Spinal (+ Adductor Canal Nerve Block. Risks/benefits explained, pt verbalized understanding) [facility] History I have reviewed the patient's past medical history: Yes Medical History: Reports:: Cancer (skin), Diabetes Mellitus Type 2, Hypertension Denies:: Chronic Obstructive Pulmonary Disease (COPD), Diabetes Mellitus Type 1, Home Oxygen, Hyperlipidemia, Internal Pacemaker, MRSA, Seizures *Have you ever received a pneumonia vaccine?: No *Have you received a flu vaccine this season?: Yes Other Medical History: Reports: Arthritis. Denies: Blood Transfusion Reaction Anesthesia experience/problems:: nac Laterality Cases: Bilateral: Total Knee Replacement, Other Other Surgeries: Yes: Cancer Surgery, Colonoscopy, Other. No: Pacemaker Amputation: No Fractures: No - *Social History Last grade of school completed: Some college Smoking Status: Never smoker Alcohol Intake: never Substance Use Type: denies use *Occupational Status:: retired Housing: house Household Members: spouse *Travel in the last 8 weeks: None Family Hx:: Stroke, Heart Attack, Other, Cancer
--- NOTE | 2021-11-21 11:25 | SUR.OPER ---
1119-family updated per Mariangel,RN
--- NOTE | 2021-11-21 12:04 | SUR.OPER ---
1204-family updated at this time
--- NOTE | 2021-11-21 13:14 | P.PN_ITS ---
[facility] Anesthesia Record Part I Intake, IV Amount: 1,700 Estimated blood loss (mL): 100 Urine output (mL): 500 Blood Pressure: 121/75 SaO2: 94 Pulse Rate: 61 Respiratory Rate: 16 Temperature: 97 F Patient is:: Drowsy, Stable Stable to PACU at:: 13:05
--- NOTE | 2021-11-21 13:23 | XR_ITS ---
FINAL REPORT CLINICAL HISTORY: left knee revision COMPARISON: November 08, 2021 FINDINGS: Two views of the left knee were obtained. There is no evidence of fracture or dislocation. The bony alignment is normal. There are interval postoperative changes from knee arthroplasty. Multiple antibiotic beads are present. There is a knee joint effusion. There is soft tissue air. There is no evidence of foreign body. IMPRESSION: Postoperative changes as above. Reviewed, Interpreted and Dictated by Huber Olivier III, MD Transcribed by Risa Cisneros Authenticated and [facility]
[2021-11-21 13:48] LABS: POC Glucose,Bedside 174 (70-110)
--- NOTE | 2021-11-21 14:07 | HMH.PHAINT ---
MEDICATION RECONCILIATION COMPLETED ON PATIENT USING EXTERNAL FILL HISTORY FROM PHARMACY. -DEJA INGRAM, KAMLAD
--- NOTE | 2021-11-21 14:26 | HMH.ORTHHP ---
*Admission Date: 11/21/21 *Reason for consult:: s/p left total knee arthroplasty *History of present illness: Patient is a 80-year-old male admitted to the inpatient service following an uneventful left unicompartmental knee arthroplasty conversion to a left total knee arthroplasty today 11/21/2021. He has had chronic left knee pain for many years which has gradually worsened. He was previously under the care of Dr. Alfaro who performed a left partial knee arthroplasty approximately 8 years ago. The patient states that he initially did well after surgery but has developed left knee pain over the last 6 to 8 months. He localizes pain to around the knee joint with more severe pain present over the anterolateral aspect. He states that his pain is aggravated by walking, standing for prolonged periods of time, or climbing stairs. He rates his pain an 8 out of 10 at its worst. He states that his knee feels like it is on fire. He also reports frequent sensations of the left knee giving out on him and states that he is unable to walk without stumbling. He has been mobilizing primarily with the use of a cane. He also reports frequent night pain and sleep disturbances. He states that his knee pain is adversely affecting his mobility and activities of daily living. He denies any history of fevers, chills, rigors, or distal tingling/numbness. He also had a right total knee arthroplasty performed by Dr. Alfaro approximately 6 years ago. No history of any back pain or hip pain. He is a non-smoker and is retired. His past medical history is significant for hypertension, diabetes, and arthritis. [facility] History I have reviewed the patient's past medical history: Yes Medical History: Reports:: Cancer (skin), Diabetes Mellitus Type 2, Hypertension Denies:: Chronic Obstructive Pulmonary Disease (COPD), Diabetes Mellitus Type 1, Home Oxygen, Hyperlipidemia, Internal Pacemaker, MRSA, Seizures *Have you ever received a pneumonia vaccine?: No *Have you received a flu vaccine this season?: Yes Other Medical History: Reports: Arthritis. Denies: Blood Transfusion Reaction Anesthesia experience/problems:: nac Laterality Cases: Bilateral: Total Knee Replacement, Other Other Surgeries: Yes: Cancer Surgery, Colonoscopy, Other. No: Pacemaker Amputation: No Fractures: No - *Social History Last grade of school completed: Some college Smoking Status: Never smoker Alcohol Intake: never Substance Use Type: denies use *Occupational Status:: retired Housing: house Household Members: spouse *Travel in the last 8 weeks: None Family Hx:: Stroke, Heart Attack, Other, Cancer Review of Systems - Review of Systems Review of systems:: pertinent systems reviewed and negative unless documented below - Constitutional Denies anorexia, Denies body ache(s), Denies chills, Denies fatigue, Denies fever(s), Denies headache(s), Denies lack of energy, Denies malaise, Denies weakness - Eyes Denies change in vision - ENT Denies poor balance, Denies headache(s), Denies nasal congestion, Denies neck pain, Denies sore throat - *Cardiovascular Denies chest pain, Denies chest pain at rest, Denies chest pain with activity, Denies shortness of breath, Denies shortness of breath with activity, Denies radiating jaw, neck or arm pain - *Respiratory Denies chest congestion, Denies cough, Denies shortness of breath, Denies pain on inspiration, Denies wheezing - *Gastrointestinal Denies abdominal pain, Denies change in bowel habits, Denies coffee ground vomit, Denies constipation, Denies loose stools, Denies loose stools, Denies black, tarry stools, Denies nausea, Denies vomiting - *Genitourinary Denies difficulty urinating, Denies painful urination, Denies urinary frequency, Denies urinary incontinence, Denies urinary urgency - *Musculoskeletal Reports abnormal walking, Reports joint pain, Denies body aches, Denies neck pain, Denies numbness, Denies radiating pain into limb, Denies stiffness, Den
[2021-11-21 14:39] LABS: Microscopic,Cath URINE MICROSCOPIC (MICROSCOPIC)
--- NOTE | 2021-11-21 14:56 | HMH.OPNOTE ---
Date of procedure: 11/21/21 Pre-op Diagnosis:: 1. Chronic pain, left knee 2. Primary osteoarthritis, left knee 3. Loose bodies, left knee 4. History of prosthetic unicompartmental arthroplasty, left knee Post-op Diagnosis:: Same Procedure performed:: Revision total knee arthroplasty-conversion of a UKA to TKA, left knee Surgeon:: Olvin Gauthier MD Manager Ob(s):: Jaye Paulino PA-C [employer]W MEMBER:: Arturo Houston Anesthesia: spinal Estimated blood loss (mL): 100 Clinical Note:: Patient is a 80-year-old male with history of left medial compartment TKA and progressive degenerative changes over the lateral and patellofemoral compartments along with intra-articular loose bodies in his left knee presented with unremitting severe pain not relieved by conservative management. The arthritic process and pain are advanced to the point that it is becoming a hazard for the patient with risk of falling and injuring himself. Revising to a total knee arthroplasty is indicated to relieve the pain, improve function, reduce the risk of falls and improve quality of life. Please refer to my office note for full details. Operative findings:: As noted on the preoperative evaluation, the knee joint has a 5 degrees of fixed flexion deformity. As seen on the x-rays, the lateral and patellofemoral compartments are showing significant degenerative changes. There were multiple large cement loose bodies over the lateral compartment and couple of them have caused significant damage to the articular surface of the tibia as well as the femur. Large linear defects were noted over the lateral femoral condyle as well as the lateral tibial plateau. The lateral meniscus was degenerate. The cruciate ligaments were intact. There is osteophyte formation over the lateral and patellofemoral compartments. The previous medial compartment partial knee arthroplasty components were well fixed. No evidence of any loosening or obvious signs of infection were noted. There was synovitis and small amount of knee effusion. Samples of synovial tissue and bone were obtained for microbiology and histopathology. Bone quality is good. Operative note:: On the day of the surgery the patient and his family were met in the preoperative area.? I have again reviewed the clinical and x-ray findings and discussed the diagnosis, natural history and management options in detail including both nonsurgical and surgical.? Patient had previous medial unicompartmental partial knee replacement with progression of degenerative changes over the lateral and patellofemoral compartments of his left knee; also cement loose bodies over the lateral compartment which appear to be causing damage to the articular surface. He has failed to respond satisfactorily to conservative management so far and has opted for a conversion to a total knee arthroplasty. He is having significant pain and disability not controlled with conservative management. His walking distance is significantly limited because of the knee pain. He also reports difficulty with activities of daily living and reports night pain with sleep disturbance on a regular basis. The knee joint also give out and patient is at risk of falls resulting in fractures. He mobilizes with a cane. We have again discussed the details of the procedure, risks and benefits and alternatives in detail. The complications discussed include but are not limited to infection, injury to nerves and blood vessels including injury to popliteal artery, injury to tendons and ligaments, DVT and PE, fat embolism, intraoperative fracture, limb length inequality, patella fracture, patellofemoral instability, patellar clunk syndrome, quadriceps and patellar tendon rupture, implant failure, component loosening, periprosthetic femur and tibia fractures, stiffness (arthrofibrosis), limp, incomplete relief of pain, incomplete functional recovery, likely need for further surgery in future including revision and anes
--- NOTE | 2021-11-21 15:32 | HMH.ANESII ---
[facility] Anesthesia Record Part II Discharge Time: 13:55 Destination: Medical Surgical Department PACU nurse assessment reviewed?: Yes Patient Condition:: Good Anesthesia Complications:: None Swallowing reflex intact?: Yes Cyanosis?: No Blood Pressure: 139/77 Pulse Rate: 59 Temperature: 97.2 F Mental Status: Alert & Oriented Pain level:: 6 Nausea and/or vomitting:: None Intake, IV Amount: 0
[2021-11-21 16:06] LABS: Appearance,Urine/Cath CLEAR (Clear); Bilirubin,Cath Negative (Negative); Blood, Urine/Cath 1+ (Negative); Color,Urine/Cath YELLOW (Yellow); Glucose,Urine/Cath (UA) Negative (Negative); Ketones,Urine/Cath Negative (Negative); Leukocyte Esterase,Cath Negative (Negative); Nitrate,Cath Negative (Negative); PH,Urine/Cath 5.5 (5.0-8.5); Protein,Urine/Cath Negative (Negative); Specific Gravity, Urine/Cath >= 1.030 (1.005-1.030); Urobilinogen,Cath 0.2 EU/dl (0.2)
[2021-11-21 16:41] LABS: Bacteria,Urine/Cath TRACE /lpf; Uric Acid Crystals,Ur/Cath 2+ /lpf; WBC,Urine/Cath Occasional #/hpf (0-3)
[2021-11-21 17:43] LABS: POC Glucose,Bedside 219 (70-110)
[2021-11-22] VITALS: BP 154/66; PULSE 73; RESP 16; TEMP 36.7; O2SAT 95
[2021-11-22 04:00] VITALS: BP 160/71; PULSE 71; RESP 16; TEMP 37.2; O2SAT 93
[2021-11-22 05:49] VITALS: BMI 29.8
--- NOTE | 2021-11-22 07:08 | P.CONPHA_ITS ---
[facility] Pharmacy VTE Monitoring - Patient Demographics Admission date: 11/21/21 Report Date: 11/22/21 Time: 07:08 Allergies/Adverse Reactions: Patient Allergies No Known Allergies Allergy (Verified 11/21/21 06:31) Height: 1.83 m Weight: 99.875 kg Patient Problems: Current Active Problems Status post total left knee replacement (Acute) - VTE Risk Was VTE Risk Assessment Performed: Yes VTE Risk Level: Very Low Risk - Prophylaxis VTE Prophylaxis Ordered?: Yes Types of VTE Prophylaxis: IPCS Thigh High Location of Applied Device: Right Leg
[2021-11-22 07:28] LABS: Basophils # 0.1 K/mm3 (0-0.2); Basophils % 0.9 % (0.1-2.0); Eosinophils # 0.1 K/mm3 (0.0-0.4); Eosinophils % 1.1 % (0.1-12.0); Hematocrit 39.1 % (42.0-52.0); Hemoglobin 13.1 g/dL (14.1-18.0); Lymphocytes # 0.9 K/mm3 (0.7-4.5); Lymphocytes % 13.1 % (10-50); Mean Corpuscular HGB Conc 33.6 g/dL (31.8-35.4); Mean Corpuscular Hemoglobin 33.5 pg (27.0-31.2); Mean Corpuscular Volume 99.7 fl (80-94); Mean Platelet Volume 8.8 fl (7.4-10.4); Monocytes # 0.4 K/mm3 (0.1-1.0); Monocytes % 6.3 % (1.7-9.3); Neutrophils # 5.5 K/mm3 (1.8-7.8); Neutrophils % 78.6 % (37.0-80.0); Platelet Count 156 K/mm3 (142-424); Red Blood Count 3.92 M/mm3 (4.60-6.20); Red Cell Distribution Width 13.6 % (11.5-17.5)
[2021-11-22 07:31] LABS: Chloride 104 mmol/L (98-107); Sodium 136 mmol/L (136-145)
[2021-11-22 07:32] LABS: Potassium 4.1 mmoL/L (3.5-5.1)
[2021-11-22 07:35] LABS: Anion Gap 12.1 mEq/L (5-15); Blood Urea Nitrogen 12 mg/dl (9-20); Calcium 8.7 mg/dl (8.4-10.2); Carbon Dioxide 24 mmol/L (22.0-30.0); Creatinine Clearance Estimated 86 mL/min (50-200); Estimated Glomerular Filt Rate 82 ml/min (>60); GFR (African American) 99 ML/MIN (>60); Glucose 224 mg/dl (74-100)
[2021-11-22 08:00] VITALS: BP 177/65; PULSE 76; RESP 16; TEMP 36.9; O2SAT 94
--- NOTE | 2021-11-22 09:10 | HMH.ORTHPN ---
Subjective Date: 11/22/21 Time: 08:20 Principal diagnosis: s/p left total knee arthroplasty Interval history: Patient is a 80-year-old male who underwent an uneventful left unicompartmental knee arthroplasty conversion to a left total knee arthroplasty yesterday 11/21/2021. Today the patient is postop day #1. This morning he is sitting up comfortably in bed. He reports some left knee pain as to be expected at this stage but states that it is well controlled with rest and as needed pain medication. He reports that he is eating and drinking well and denies any episodes of nausea or vomiting. He has not yet ambulated, but therapy is present at the bedside this morning. He denies any history of fevers, chills, rigors, or distal tingling/numbness. He denies any other symptoms or concerns at this time. PN: Obj Ex Vital signs: Temp Pulse Resp BP Pulse Ox 98.4 F 76 16 177/65 H 94 L 11/22/21 08:00 11/22/21 08:00 11/22/21 08:00 11/22/21 08:00 11/22/21 08:00 - Constitutional no acute distress, cooperative - Routine HEENT Exam Head: Present: normocephalic, atraumatic Eye: Present: EOMI, PERRL ENT: Present: mucous membranes moist - Routine Neck Exam Present: supple, full ROM, trachea midline. Absent: JVD, lymphadenopathy - Routine Respiratory Exam Absent: accessory muscle use, respiratory distress Comments: Symmetric chest movement, able to speak in complete sentences - Routine Cardiovascular Exam Present: RRR Comments: Normal peripheral pulses - Routine Abdominal Exam Present: soft. Absent: tenderness - Routine Extremities Exam Comments: Upon examination of the left knee: The limb lengths are equal. Dressings present over the left knee are clean, dry, and intact. No evidence of drainage or bleeding noted. Out of the dressings, the surgical incision appears healthy and is healing well. No erythema, induration, purulent drainage, bleeding, or other signs of infection noted. Attempted movements of the left knee are somewhat painful. Thigh and calf are soft and nontender; Homans' sign is negative. No clinical evidence of DVT noted. Posterior tibial pulse 2+; capillary refill is brisk. Sensation to light touch is grossly intact throughout. Patient is actively mobilizing the foot, ankle, and toes. - Routine Skin Exam Present: intact, warm, normal turgor. Absent: cyanosis, erythema, lesions, jaundice - Routine Neurological Exam Present: alert, oriented X3, CN II-XII intact, moving all extremities, normal tone, normal speech. Absent: sensory deficit, motor deficit, altered mental status - Routine Psychiatric Exam Present: normal affect, cooperative - Urinary Catheter Management Joyner Cath placed during this visit: no Progress Note: A&P (1) Status post total left knee replacement Status: Acute Assessment and Plan for All Diagnoses:: I have reviewed the clinical findings and progress of the patient. This morning he is doing well from an orthopedic standpoint and denies any specific concerns or complaints at this time. I have changed her surgical dressings and the surgical incision is healing well. No erythema, induration, purulent drainage, bleeding, or other signs of infection noted. He has a Dermabond Prineo skin closure system in place, I have given the patient appropriate care instructions and advised him not to remove the Dermabond Prineo dressing. A sterile bordered gauze dressing was reapplied over the incision. I have advised the patient that in a couple of days time it will be permissible for the sterile bordered gauze to be removed and at that stage it will be permissible for him to take a shower and get the surgical incision wet with shower water. After showering, pat the incision dry and do not apply any lotions or creams. Plan to begin PT/OT today; patient may mobilize weightbearing as tolerated on the left lower extremity. We have advised him to use the knee immobilizer when w
--- NOTE | 2021-11-22 09:40 | HMH.OTEV ---
OT Inpatient Evaluation Rehab OT IP Evaluation Start: 11/21/21 14:19 Freq: ONCE Status: Complete Protocol: Document 11/22/21 09:33 [facility] (Rec: 11/22/21 09:40 [facility] [id number]) Rehab OT IP Assessment Subjective History Pt oriented x 3 on arrival. Pt admitted on 11/21/21 following an uneventful left total knee arthroplasty. Pt reports prior to his surgery he lived at home with his . Pt claims he was independent with all ADLs and IADLs. Pt did not require AE during ambulation or ADLs. Pt still drove and was very active. Pt has a past medical history of: Cancer (skin), Diabetes Mellitus Type 2, Hypertension Subjective I did have a hard night with pain. Pt resting in bed on arrival. Pt agreeable to engage in therapy evaluation. Pt completed bed mobility and went from supine to sitting at eob with min assist (with left leg). Pt stood from eob with cga. Pt transferred from bed to chair with cga and rolling walker. Pt sat down in chair with cga. Pt was left sitting in chair with call brown and all other needs Pt reports he wants to return home with his and daughter's assistance and home health evaluations. Objective Patient Orientation Person,Place,Birthday Upper Extremity Gross ROM WFL Bed Mobility bed mobility-scooting,bed mobility - supine/sit,bed mobility - rolling Assist Level Minimal x 1 (25% assist) Transfer Training Sit/Stand Transfer Assist Level Contact Guard/Hand Hold Chair Transfer Ability Contact Guard/Hand Hold Chair Transfer Technique Sit to/from Ambulatory Chair Transfer Assistive Devices Rolling Walker Rehab OT IP prob,goals,plan Problems Date of Evaluation: 11/22/21 OT IP Problems
--- NOTE | 2021-11-22 10:18 | HMH.PTEV ---
Physical Therapy Evaluation Rehab PT IP Evaluation Start: 11/21/21 14:19 Freq: ONCE Status: Active Protocol: Document 11/22/21 10:15 [facility] (Rec: 11/22/21 10:18 [facility] [id number]) Subjective/History History History 80 yowm adm to [facility] for L TKA. He reports he lives with spouse, 1 step to enter the home, and is generally independent with all mobility. Subjective Subjective Currently he reports mild pain in the L knee, but agrees to mobility. Rehab PT IP Eval Objective Appearance Patient Behavior Appropriate Patient Orientation Person,Place,Time Difficulty following instructions none Speech Pattern Clear Ambulation Patient Able to Ambulate Yes Ambulation Observation IP General Gait Pattern Observation Antalgic Gait Ambulation Distance (feet) 20 Ambulation Assistive Device Rolling Walker Ambulation Ability Contact Guard/Hand Hold Balance Ability to Arise Able, uses arms to help Sitting Balance Steady, safe Standing Balance Steady, wide stance Dynamic Sitting Balance Ability Good Dynamic Standing Balance Ability Fair Transfers Bed Transfer Ability Contact Guard/Hand Hold Chair Transfer Ability Contact Guard/Hand Hold Sit to Stand Bed Transfer Ability Contact Guard/Hand Hold Sit to Stand Chair Transfer Ability Contact Guard/Hand Hold Rehab PT IP prob,goals,plan Problems Date of Evaluation: 11/22/21 PT IP Problems Bed Mobility,Transfers,Gait Rehab Potential Rehab Potential Good Plan PT Intervention Plan Bed Mobility,Transfers,Gait, Self care,Therapeutic Exercise PT Plan Frequency BID Duration LOS Discharge Goals Bed Transfer Ability Supervision/Stand by Sit to Stand Chair Transfer Ability Supervision/Stand by Ambulation Assistive Device Rolling Walker Ambulation Distance (feet) 40 Discharge Plan PT Discharge Plan Pt is appropriate to return home once medically stable with HHPT vs Outpatient PT. G -code Required No Eval Complexity Eval Charge Codes 78188 - Moderate Complexity PHYSICIAN CERTIFICATION: I certify the specified therapy services for Fito Walden are required, authorized, and reviewed every 30 days.
[2021-11-22 11:47] VITALS: BP 156/75; PULSE 75; RESP 16; TEMP 36.9; O2SAT 94
--- NOTE | 2021-11-22 13:19 | HMH.DCSUM ---
General - General Admission date:: 11/21/21 Discharge date: 11/22/21 HPI HPI: Patient is a 80-year-old male admitted to the inpatient service following an uneventful left unicompartmental knee arthroplasty conversion to a left total knee arthroplasty today 11/21/2021. He has had chronic left knee pain for many years which has gradually worsened. He was previously under the care of Dr. Alfaro who performed a left partial knee arthroplasty approximately 8 years ago. The patient states that he initially did well after surgery but has developed left knee pain over the last 6 to 8 months. He localizes pain to around the knee joint with more severe pain present over the anterolateral aspect. He states that his pain is aggravated by walking, standing for prolonged periods of time, or climbing stairs. He rates his pain an 8 out of 10 at its worst. He states that his knee feels like it is on fire. He also reports frequent sensations of the left knee giving out on him and states that he is unable to walk without stumbling. He has been mobilizing primarily with the use of a cane. He also reports frequent night pain and sleep disturbances. He states that his knee pain is adversely affecting his mobility and activities of daily living. He denies any history of fevers, chills, rigors, or distal tingling/numbness. He also had a right total knee arthroplasty performed by Dr. Alfaro approximately 6 years ago. No history of any back pain or hip pain. He is a non-smoker and is retired. His past medical history is significant for hypertension, diabetes, and arthritis. Hospital Course Hospital Course: Following an uncomplicated left unicompartmental knee arthroplasty conversion to a left total knee arthroplasty the patient was admitted to the inpatient service and has progressed well. His postoperative check x-ray was satisfactory with good alignment and fixation of the orthopedic components. He was advised to ambulate weightbearing as tolerated on the left lower extremity and the patient has managed this very well. His pain is well controlled with oral analgesics. He is eating and drinking well without any difficulty. The patient is medically stable at the time of discharge and was cleared for discharge by Dr. Gauthier as well as physical therapy. His surgical dressings were changed on the first postoperative day and the surgical incision is healthy and healing well. No evidence of erythema, induration, bleeding, purulent drainage, or other signs of infection. Distal neurovascular status is intact and there is no clinical evidence of DVT. The patient was started on aspirin 325 mg daily for DVT prophylaxis after surgery. The patient's vital signs have been stable throughout his admission and he is afebrile at the time of discharge. He is being discharged home with home health services for postoperative rehabilitation. Objective Vital signs: Temp Pulse Resp BP Pulse Ox 98.4 F 75 16 156/75 H 94 L 11/22/21 11:47 11/22/21 11:47 11/22/21 11:47 11/22/21 11:47 11/22/21 11:47 no acute distress, cooperative - *Routine HEENT Exam Head: Present: normocephalic, atraumatic Eye: Present: EOMI, PERRL ENT: Present: mucous membranes moist - *Routine Neck Exam Present: supple, full ROM, trachea midline. Absent: JVD, lymphadenopathy - *Routine Respiratory Exam Absent: accessory muscle use, respiratory distress Comments: Symmetric chest movement, able to speak in complete sentences - *Routine Cardiovascular Exam Present: RRR Comments: Normal peripheral pulses - *Routine Abdominal Exam Present: soft. Absent: tenderness - *Routine Rectal Exam Patient deferred: visual exam - *Routine Exam Patient deferred: penile exam - *Routine Extremities Exam Comments: Upon examination of the left knee: Dressings present over the left knee are clean, dry, and intact. No evidence of drainage or bleeding noted. Attempted move
--- NOTE | 2021-11-22 14:56 | HMH.PHAINT ---
DISCHARGE MEDICATION COUNSELING PROVIDED. DISCUSSED THE FOLLOWING NEW PRESCRIPTIONS: -NORCO (TAKE Q4HP WITH FOOD, IF NOT IN PAIN DON'T TAKE, MAY CAUSE CONSTIPATION, NAUSEA, SEDATION, DECREASED BREATHING) -DOCUSATE (TAKE BIDP, TAKE WITH A FULL GLASS OF WATER, FOR CONSTIPATION) -ASPIRIN (TAKE DAILY, WITH OR WITHOUT FOOD, BRUISE/BLEED RISK, BLEEDING APPEARANCE BASED ON BLEED LOCATION) PATIENT AND DAUGHTER ENDORSED NO QUESTIONS AT THIS TIME.
--- NOTE | 2021-11-23 14:42 | CARE MANAGER ---
Spoke with patient regarding post-discharge follow-up. states that patient was in the ER last night and has some questions. I did call Dr. White office and they state Dr. White has the message and will call her later today.
== END 2021-11-22 15:02 | disposition home health service (06) | DRG 468 ==
LOC: OR 13:48 → 2ND 11-22 00:16
PROVIDERS: Physician Assistant Surgical; Admitting Provider Orthopaedic Surgery; PCP Internal Medicine Adolescent Medicine; Visit Provider Orthopaedic Surgery
PROC: 0SPD0JZ Removal of Synthetic Substitute from Left Knee Joint, Open Approach (ICD-10-PCS; principal; 2021-11-21 07:30)
DX: T84.89XA Other specified complication of internal orthopedic prosthetic devices, implants and grafts, initial encounter (principal); M17.12 Unilateral primary osteoarthritis, left knee; Y83.1 Surgical operation with implant of artificial internal device as the cause of abnormal reaction of the patient, or of later complication, without mention of misadventure at the time of the procedure; I10 Essential (primary) hypertension; E11.9 Type 2 diabetes mellitus without complications; Z79.84 Long term (current) use of oral hypoglycemic drugs; Z96.651 Presence of right artificial knee joint; Z85.828 Personal history of other malignant neoplasm of skin
CPT/HCPCS: 27487; C1776; 36415; 73560; 80048; 81001; 82962; 85025; 86850; 88304; 88305; 88307; 88311; 96374; 97116; 97162; 97166; 97530; C1713; C9803; J2405; J2704; J3370; U0003; U0005

== ENCOUNTER 2021-11-22 21:38 | Emergency (ER) | payer MEDICARE, SELFPAY ==
[2021-11-22 21:36] VITALS: BP 168/75; PULSE 98; RESP 18; TEMP 38.3; O2SAT 95; BMI 29.8
[2021-11-22 21:38] VITALS: BMI 27.8
--- NOTE | 2021-11-22 21:40 | XR_ITS ---
PROCEDURE INFORMATION: Exam: XR Chest Exam date and time: 11/22/2021 10:00 PM Age: 80 years old Clinical indication: Fever; Additional info: Low o2, fever TECHNIQUE: Imaging protocol: Radiologic exam of the chest. Views: 1 view. COMPARISON: CR XR CHEST 2V 07/14/2021 2:33 AM FINDINGS: Lungs: Streaky opacities at the lung bases which are likely hypoventilatory. Pleural spaces: No pneumothorax. Heart/Mediastinum: No cardiomegaly. Bones/joints: Degenerative changes of the shoulders. IMPRESSION: Streaky opacities at the lung bases which are likely hypoventilatory.
--- NOTE | 2021-11-22 21:42 | CT_ITS ---
PROCEDURE INFORMATION: Exam: CTA Chest With Contrast Exam date and time: 11/22/2021 10:03 PM Age: 80 years old Clinical indication: Dyspnea and fever; Additional info: Fever, dyspnea TECHNIQUE: Imaging protocol: Computed tomographic angiography of the chest with contrast. 3D rendering (Not supervised by radiologist): MIP and/or 3D reconstructed images were created by the technologist. Radiation optimization: All CT scans at this facility use at least one of these dose optimization techniques: automated exposure control; mA and/or kV adjustment per patient size (includes targeted exams where dose is matched to clinical indication); or iterative reconstruction. Contrast material: ISOVUE; Contrast volume: 70 ml; Contrast route: INTRAVENOUS (IV); COMPARISON: CR XR CHEST PORTABLE 11/22/2021 10:00 PM FINDINGS: Pulmonary arteries: Hypodensity within a right upper lobe lobar pulmonary artery seen on series 5 image 43 in a region of motion. No large central filling defect. Aorta: Calcified atherosclerosis. No aneurysm. Lungs: Hypoventilatory changes at the lung bases. No lobar consolidation. Pleural spaces: No pneumothorax. No pleural effusion. Heart: No cardiomegaly. No pericardial effusion. Lymph nodes: No enlarged lymph nodes. Bones/joints: No acute fracture. Soft tissues: No significant swelling. IMPRESSION: Hypodensity within a right upper lobe lobar pulmonary artery seen on series 5 image 43 in a region of motion. Cannot exclude PE.
--- NOTE | 2021-11-22 21:42 | ECG_ITS ---
APPROVED REPORT Exam: Resting ECG HR:76 bpm ECG Measurements Heart Rate 76 AXES WA 144 P 37 QRSd 97 QRS 6 QT 363 T 4 QTc 394 Conclusion SINUS RHYTHM LOW QRS VOLTAGE IN PRECORDIAL LEADS [QRS DEFLECTION < 1.0 mV IN CHEST LEADS] BORDERLINE ECG UNCONFIRMED REPORT Electronically signed by : Fitz Hoang MD 11/23/2021 14:40:00
[2021-11-22 21:45] LABS: Basophils # 0.1 K/mm3 (0-0.2); Basophils % 0.5 % (0.1-2.0); Eosinophils % 0.2 % (0.1-12.0); Hematocrit 39.2 % (42.0-52.0); Hemoglobin 13.4 g/dL (14.1-18.0); Lymphocytes # 1.3 K/mm3 (0.7-4.5); Lymphocytes % 13.1 % (10-50); Mean Corpuscular HGB Conc 34.2 g/dL (31.8-35.4); Mean Corpuscular Hemoglobin 33.4 pg (27.0-31.2); Mean Corpuscular Volume 97.8 fl (80-94); Mean Platelet Volume 9.1 fl (7.4-10.4); Monocytes # 0.6 K/mm3 (0.1-1.0); Monocytes % 6.2 % (1.7-9.3); Platelet Count 176 K/mm3 (142-424); Red Blood Count 4.01 M/mm3 (4.60-6.20); Red Cell Distribution Width 13.5 % (11.5-17.5); White Blood Count 10.1 K/mm3 (4.8-10.8)
[2021-11-22 21:53] LABS: Alanine Aminotransferase 25 U/L (12-78); Albumin Level 3.8 g/dl (3.5-5.0); Albumin/Globulin Ratio 1.5 (1.1-1.8); Alkaline Phosphatase 65 U/L (38-126); Anion Gap 11.9 mEq/L (5-15); Aspartate Amino Transferase 28 U/L (17-59); Bilirubin,Total 0.8 mg/dl (0.2-1.3); Blood Urea Nitrogen 10 mg/dl (9-20); Calcium 9.5 mg/dl (8.4-10.2); Carbon Dioxide 23 mmol/L (22.0-30.0); Chloride 104 mmol/L (98-107); Creatinine Clearance Estimated 78 mL/min (50-200); Estimated Glomerular Filt Rate 72 ml/min (>60); GFR (African American) 87 ML/MIN (>60); Globulin 2.5 g/dL (1.3-3.2); Glucose 249 mg/dl (74-100); Potassium 3.9 mmoL/L (3.5-5.1); Sodium 135 mmol/L (136-145); Total Protein,Serum 6.3 g/dl (6.3-8.2)
[2021-11-22 22:03] LABS: Coronavirus 19, PCR Not Detected (NotDetected); Influenza A, PCR Not Detected (NotDetected); Influenza B, PCR Not Detected (NotDetected)
[2021-11-22 22:10] LABS: Erythrocyte Sedimentation Rate 23 mm/hr (0-20)
[2021-11-22 22:12] LABS: Procalcitonin 0.171 ng/mL (0.0-2.0)
[2021-11-22 22:12] LABS: Troponin I < 0.01 ng/ml (0.00-0.034)
[2021-11-22 22:12] LABS: Lactic Acid 1.6 mmol/L (0.7-2.1)
[2021-11-22 22:29] LABS: NT Pro Brain Natriuretic Pep. 188 pg/mL (0-450)
--- NOTE | 2021-11-22 22:40 | PC.NURSE ---
Dr. Arellano s/w [facility]
--- NOTE | 2021-11-23 00:11 | HMH.EDNVD ---
ED Disposition Clinical Impression: Acute dyspnea, Status post total left knee replacement Pulmonary emboli Qualifiers: Pulmonary embolism type: unspecified Chronicity: acute Acute cor pulmonale presence: without acute cor pulmonale Qualified Code(s): I26.99 - Other pulmonary embolism without acute cor pulmonale Disposition: Home, Self-Care Condition on Discharge: Good Instructions: DI for Fever (Symptom) -- Adult Additional Instructions: call dr white in am Referrals: Alonso White MD [Primary Care Provider] - - Critical Care Critical Care Time: No Attestation: On 11/22/21, the high probability of a clinically significant, sudden or life threatening deterioration of the following system(s) required my full and direct attention, intervention and personal management. The time I documented below is in addition to time spent performing reported procedures but includes the following listed in this critical care notation. Medical Decision Making - Medical Records Medical records reviewed: Yes: I reviewed the patient's medical records. - Sujit Inquiry Pt receiving controlled substance: No Vital Signs: 11/22/21 21:36 Temperature 100.9 F H Temperature Source Oral Pulse Rate [Left Radial] 98 H Respiratory Rate 18 Blood Pressure [Right Arm] 168/75 H Blood Pressure Mean [Right Arm] 106 Blood Pressure Source [Right Arm] Automatic Cuff Blood Pressure Position [Right Arm] Sitting 02 Sat by Pulse Oximetry 95 Oxygen Delivery Method Nasal Cannula Oxygen Flow Rate (LPM) 2 - Lab Data Lab results reviewed: Yes: I reviewed the patient's lab results. Lab Results 11/22/21 21:10: ESR 23 H 11/22/21 21:10: C-Reactive Protein 99.0 H, Procalcitonin 0.171 11/22/21 21:10: WBC 10.1 D, RBC 4.01 L, Hgb 13.4 L, Hct 39.2 L, MCV 97.8 H, MCH 33.4 H, MCHC 34.2, RDW 13.5, Plt Count 176, MPV 9.1, Neut % (Auto) 80.0, Lymph % (Auto) 13.1, [place] % (Auto) 6.2, Eos % (Auto) 0.2, Baso % (Auto) 0.5, Neut # (Auto) 8.0 H, Lymph # (Auto) 1.3, [place] # (Auto) 0.6, Eos # (Auto) 0.0, Baso # (Auto) 0.1 11/22/21 21:10: Sodium 135 L, Potassium 3.9, Chloride 104, Carbon Dioxide 23, Anion Gap 11.9, BUN 10, Creatinine 1.00, Estimated Creat Clear 78, Estimated GFR 72, Est GFR ( Amer) 87, Glucose 249 H, Calcium 9.5, Total Bilirubin 0.8, AST 28, ALT 25, Alkaline Phosphatase 65, Total Protein 6.3, Albumin 3.8, Globulin 2.5, Albumin/Globulin Ratio 1.5 11/22/21 21:14: Troponin I < 0.01 11/22/21 21:14: NT-Pro-B Natriuret Pep 188 11/22/21 21:57: Lactate 1.6 11/22/21 21:57: SARS-CoV-2 (PCR) Not detected, Influenza A Untype (PCR) Not detected, Influenza Type B (PCR) Not detected Result diagrams: 11/22/21 21:10 11/22/21 21:10 Orders (Tests/Meds): ED MEDICATIONS Generic Name Dose Route Start Last Admin Trade Name Freq PRN Reason Stop Dose Admin Enoxaparin Sodium 90 mg 11/23/21 01:00 Enoxaparin 100mg/Ml Syringe 1 mg/kg (90 mg) 12/23/21 00:59 SQ Q12H SHARIF Sodium Chloride 1,000 mls @ 999 mls/hr 11/22/21 21:45 11/22/21 21:52 Sod Chlor 0.9% 1000ml Bag IV 11/22/21 22:45 999 mls/hr .Q1H1M SHARIF Administration Discontinued Medications Generic Name Dose Route Start Last Admin Trade Name Freq PRN Reason Stop Dose Admin Acetaminophen 650 mg 11/22/21 21:44 11/22/21 21:52 Acetaminophen 325mg Tab PO 11/22/21 21:45 650 mg ONCE ONE Administration Iopamidol 70 ml 11/22/21 22:08 11/22/21 22:11 Iopamidol-370 (76%);100ml Bottle IV 11/22/21 22:09 70 ml ONCE ONE Administration Sodium Chloride 50 ml 11/22/21 22:08 11/22/21 22:11 0.9 % Sodium Chloride 50 Ml Vial IV 11/22/21 22:09 50 ml ONCE ONE Administration Sodium Chloride 10 ml 11/22/21 22:08 11/22/21 22:11 Sodium Chloride 0.9% 10ml Syr (Rad Only) IV 11/22/21 22:09 10 ml ONCE ONE Administration ORDERS Category Date Time Status Troponin I Q3H Lab 11/23/21 00:45 Ordered Troponin I Q3H Lab 11/23/21 03:45 Ordered Blood Culture Stat M
[2021-11-23 01:30] VITALS: BP 135/80; PULSE 79; RESP 20; TEMP 36.9; O2SAT 96
[2021-11-23 02:12] LABS: Troponin I < 0.01 ng/ml (0.00-0.034)
== END 2021-11-23 03:07 | disposition home or self-care (01) ==
PROVIDERS: Emergency Provider Emergency Medicine; PCP Internal Medicine Adolescent Medicine
DX: I26.99 Other pulmonary embolism without acute cor pulmonale (principal); R06.00 Dyspnea, unspecified; Z96.652 Presence of left artificial knee joint; R50.9 Fever, unspecified; R53.1 Weakness; R11.0 Nausea; R10.84 Generalized abdominal pain
CPT/HCPCS: 71045; 71275; 80053; 83605; 83880; 84145; 84484; 85025; 85651; 86140; 87040; 93005; 96366; 96372; 99284; C9803; Q9967; U0003; U0005

== ENCOUNTER → 2021-11-23 11:54 | Outpatient (CLI) | payer MEDICARE, SELFPAY ==
[2021-11-23 13:06] LABS: Hemoglobin A1C 7.8 % (4.0-6.0)
== END ==
PROVIDERS: Visit Provider Orthopaedic Surgery
DX: E11.9 Type 2 diabetes mellitus without complications (principal); Z79.84 Long term (current) use of oral hypoglycemic drugs; Z47.1 Aftercare following joint replacement surgery
CPT/HCPCS: 83036

== ENCOUNTER 2021-11-26 14:16 | Observation (INO) | payer MEDICARE, SELFPAY ==
[2021-11-26 14:17] VITALS: BP 154/74; PULSE 93; RESP 18; TEMP 36.7; O2SAT 96; BMI 29.8
--- NOTE | 2021-11-26 14:40 | XR_ITS ---
PROCEDURE INFORMATION: Exam: XR Chest Exam date and time: 11/26/2021 2:54 PM Age: 80 years old Clinical indication: Shortness of breath; Patient HX: SOA w general weakness since Sunday, post-op lt knee SX; Additional info: Former smoker TECHNIQUE: Imaging protocol: Radiologic exam of the chest. Views: 2 views. COMPARISON: CR XR CHEST PORTABLE 11/22/2021 10:00 PM FINDINGS: Lungs: Unremarkable. No consolidation. Pleural spaces: Unremarkable. No pleural effusion. No pneumothorax. Heart/Mediastinum: Unremarkable. No cardiomegaly. Bones/joints: Thoracic spondylosis IMPRESSION: No evidence of acute cardiopulmonary disease.
--- NOTE | 2021-11-26 14:46 | ECG_ITS ---
APPROVED REPORT Exam: Resting ECG HR:82 bpm ECG Measurements Heart Rate 82 AXES SD 160 P 56 QRSd 102 QRS 12 QT 354 T 37 QTc 392 Conclusion SINUS RHYTHM NORMAL ECG UNCONFIRMED REPORT Electronically signed by : Fitz Hoang MD 11/28/2021 21:49:16
[2021-11-26 15:05] LABS: ABG Base Excess -1.5 mmol/L (-2.4-2.3); ABG HCO3 21.4 mmhg (22.0-26.0); ABG Oxygen Saturation 96 % (90-100); ABG PCO2 27.1 mmhg (35.0-45.0); ABG PH 7.52 mmol/L (7.35-7.45); ABG PO2 78.7 mmhg (80-100); ABG TCO2 22.3 mmhg (23-27)
[2021-11-26 15:06] LABS: Oxygen ROOM AIR %; Source R BRACHIAL
--- NOTE | 2021-11-26 15:08 | HMH.EDWEAK ---
ED Disposition Clinical Impression: Status post total left knee replacement Pulmonary embolism Qualifiers: Pulmonary embolism type: multiple subsegmental (without acute cor pulmonale) Qualified Code(s): I26.94 - Multiple subsegmental pulmonary emboli without acute cor pulmonale Disposition: Admitted As Inpatient Condition on Discharge: Good - Critical Care Critical Care Time: No Attestation: On 11/26/21, the high probability of a clinically significant, sudden or life threatening deterioration of the following system(s) required my full and direct attention, intervention and personal management. The time I documented below is in addition to time spent performing reported procedures but includes the following listed in this critical care notation. Medical Decision Making - Medical Records Medical records reviewed: Yes: I reviewed the patient's medical records. - Sujit Inquiry Pt receiving controlled substance: No Vital Signs: 11/26/21 14:17 11/26/21 15:21 11/26/21 16:02 Temperature 98.1 F Temperature Source Oral Pulse Rate 78 91 H Pulse Rate [Left Radial] 93 H Respiratory Rate 18 18 20 Blood Pressure 145/57 H 156/99 H Blood Pressure [Right Arm] 154/74 H Blood Pressure Mean 104 108 Blood Pressure Mean [Right Arm] 100 Blood Pressure Source [Right Arm] Automatic Cuff Blood Pressure Position [Right Arm] Sitting 02 Sat by Pulse Oximetry 96 97 89 L Oxygen Delivery Method Room Air 11/26/21 16:21 Temperature Temperature Source Pulse Rate 89 Pulse Rate [Left Radial] Respiratory Rate 18 Blood Pressure 145/78 H Blood Pressure [Right Arm] Blood Pressure Mean 98 Blood Pressure Mean [Right Arm] Blood Pressure Source [Right Arm] Blood Pressure Position [Right Arm] 02 Sat by Pulse Oximetry 94 L Oxygen Delivery Method - Lab Data Lab results reviewed: Yes: I reviewed the patient's lab results. Lab Results 11/26/21 14:41: Specimen Source R brachial, O2 % Room air, ABG pH 7.52 H, ABG pCO2 27.1 L, ABG pO2 78.7 L, ABG HCO3 21.4 L, ABG Total CO2 22.3 L, ABG O2 Saturation 96, ABG Base Excess -1.5 11/26/21 14:45: Sodium 134 L, Potassium 3.9, Chloride 96 L, Carbon Dioxide 27, Anion Gap 14.9, BUN 21 H, Creatinine 1.00, Estimated Creat Clear 86, Estimated GFR 72, Est GFR ( Amer) 87, Glucose 246 H, Calcium 9.1, Total Bilirubin 1.1, AST 41, ALT 43, Alkaline Phosphatase 65, Troponin I < 0.01, NT-Pro-B Natriuret Pep 37.9, Total Protein 6.5, Albumin 3.7, Globulin 2.8, Albumin/Globulin Ratio 1.3 11/26/21 14:45: WBC 7.3, RBC 3.78 L, Hgb 12.6 L, Hct 37.7 L, MCV 99.7 H, MCH 33.3 H, MCHC 33.4, RDW 13.5, Plt Count 240 D, MPV 8.8, Neut % (Auto) 77.0, Lymph % (Auto) 15.0, [place] % (Auto) 6.3, Eos % (Auto) 0.8, Baso % (Auto) 0.9, Neut # (Auto) 5.6, Lymph # (Auto) 1.1, [place] # (Auto) 0.5, Eos # (Auto) 0.1, Baso # (Auto) 0.1 11/26/21 16:05: Urine Color Yellow, Urine Appearance Clear, Urine pH 5.5, Ur Specific [place] 1.010, Urine Protein Negative, Urine Glucose (UA) Negative, Urine Ketones Negative, Urine Blood Negative, Urine Nitrate Negative, Urine Bilirubin Negative, Urine Urobilinogen 0.2, Ur Leukocyte Esterase Negative, Urine RBC None, Urine WBC Occasional, Ur Squamous Epith Cells None, Urine Bacteria None 11/26/21 17:05: Troponin I < 0.01 Result diagrams: 11/26/21 14:45 11/26/21 14:45 Orders (Tests/Meds): ED MEDICATIONS Generic Name Dose Route Start Last Admin Trade Name Freq PRN Reason Stop Dose Admin Enoxaparin Sodium 100 mg 11/26/21 21:00 11/26/21 18:11 Enoxaparin 100mg/Ml Syringe SQ 12/26/21 20:59 100 mg BID SHARIF Administration Rivaroxaban 15 mg 11/27/21 07:30 Rivaroxaban 15mg Tablet PO 12/27/21 07:29 BIDWMEAL SHARIF Sodium Chloride 10 ml 11/26/21 15:09 Sodium Chloride 0.9% 10ml Vial IV 12/26/21 15:08 NEEDED PRN to Dilute Lorazepam inj Discontinued Medications Generic Name Dose Route Start Last Admin Trade Name Freq PRN Reason Stop Dose Admin
[2021-11-26 15:19] LABS: Alanine Aminotransferase 43 U/L (12-78); Albumin Level 3.7 g/dl (3.5-5.0); Albumin/Globulin Ratio 1.3 (1.1-1.8); Alkaline Phosphatase 65 U/L (38-126); Anion Gap 14.9 mEq/L (5-15); Aspartate Amino Transferase 41 U/L (17-59); Bilirubin,Total 1.1 mg/dl (0.2-1.3); Blood Urea Nitrogen 21 mg/dl (9-20); Calcium 9.1 mg/dl (8.4-10.2); Carbon Dioxide 27 mmol/L (22.0-30.0); Chloride 96 mmol/L (98-107); Creatinine Clearance Estimated 86 mL/min (50-200); Estimated Glomerular Filt Rate 72 ml/min (>60); GFR (African American) 87 ML/MIN (>60); Globulin 2.8 g/dL (1.3-3.2); Glucose 246 mg/dl (74-100); Potassium 3.9 mmoL/L (3.5-5.1); Sodium 134 mmol/L (136-145); Total Protein,Serum 6.5 g/dl (6.3-8.2)
[2021-11-26 15:20] LABS: Basophils # 0.1 K/mm3 (0-0.2); Basophils % 0.9 % (0.1-2.0); Eosinophils # 0.1 K/mm3 (0.0-0.4); Eosinophils % 0.8 % (0.1-12.0); Hematocrit 37.7 % (42.0-52.0); Hemoglobin 12.6 g/dL (14.1-18.0); Lymphocytes # 1.1 K/mm3 (0.7-4.5); Mean Corpuscular HGB Conc 33.4 g/dL (31.8-35.4); Mean Corpuscular Hemoglobin 33.3 pg (27.0-31.2); Mean Corpuscular Volume 99.7 fl (80-94); Mean Platelet Volume 8.8 fl (7.4-10.4); Monocytes # 0.5 K/mm3 (0.1-1.0); Monocytes % 6.3 % (1.7-9.3); Neutrophils # 5.6 K/mm3 (1.8-7.8); Platelet Count 240 K/mm3 (142-424); Red Blood Count 3.78 M/mm3 (4.60-6.20); Red Cell Distribution Width 13.5 % (11.5-17.5); White Blood Count 7.3 K/mm3 (4.8-10.8)
[2021-11-26 15:21] VITALS: BP 145/57; PULSE 78; RESP 18; O2SAT 97
[2021-11-26 15:32] LABS: NT Pro Brain Natriuretic Pep. 37.9 pg/mL (0-450)
[2021-11-26 15:36] LABS: Troponin I < 0.01 ng/ml (0.00-0.034)
[2021-11-26 16:02] VITALS: BP 156/99; PULSE 91; RESP 20; O2SAT 89
--- NOTE | 2021-11-26 16:11 | PC.NURSE ---
500CC URINE OUTPUT
[2021-11-26 16:21] VITALS: BP 145/78; PULSE 89; RESP 18; O2SAT 94
--- NOTE | 2021-11-26 16:21 | CT_ITS ---
PROCEDURE INFORMATION: Exam: CTA Chest With Contrast Exam date and time: 11/26/2021 4:34 PM Age: 80 years old Clinical indication: Shortness of breath; Additional info: Pe protocol TECHNIQUE: Imaging protocol: Computed tomographic angiography of the chest with contrast. 3D rendering (Not supervised by radiologist): MIP and/or 3D reconstructed images were created by the technologist. Radiation optimization: All CT scans at this facility use at least one of these dose optimization techniques: automated exposure control; mA and/or kV adjustment per patient size (includes targeted exams where dose is matched to clinical indication); or iterative reconstruction. Contrast material: ISOVUE; Contrast volume: 70 ml; Contrast route: INTRAVENOUS (IV); COMPARISON: CT ANGIO CHEST PE PROTOCOL 11/22/2021 10:03 PM FINDINGS: Pulmonary arteries: There is a persistent region of diminished density within segmental branches of the right upper lobe pulmonary artery. Findings demonstrated on series 5 image number 44 through 46, series 1001, image number 39. Findings compatible with thrombus. No large central filling defect demonstrated. Additional regions of thrombus demonstrated in segmental branches of the right lower lobe pulmonary artery. (series 5, image number 63) Aorta: Unremarkable. No aortic aneurysm. No aortic dissection. Lungs: Minimal regions of subsegmental atelectasis at the lung bases. Pleural spaces: Unremarkable. No pneumothorax. No pleural effusion. Heart: Unremarkable. No cardiomegaly. No pericardial effusion. Heart RV/LV ratio: RV LV ratio: 0.95. Lymph nodes: Unremarkable. No enlarged lymph nodes. Bones/joints: Unremarkable. No acute fracture. Soft tissues: Unremarkable. IMPRESSION: Demonstration of thrombus formation involving segmental branches of the right upper and lower lobe pulmonary arteries. Findings compatible with pulmonary embolus. No large central filling defect demonstrated.
--- NOTE | 2021-11-26 16:33 | PC.NURSE ---
pt to CT via wheelchair
--- NOTE | 2021-11-26 16:45 | PC.NURSE ---
pt returned fom CT
[2021-11-26 16:47] LABS: Microscopic, Urine URINE MICROSCOPIC (MICROSCOPIC)
[2021-11-26 16:48] LABS: Appearance,Urine CLEAR (Clear); Bilirubin,Urine Negative (Negative); Blood, Urine Negative (Negative); Color,Urine YELLOW (Yellow); Glucose,Urine (UA) Negative (Negative); Ketones,Urine Negative (Negative); Leukocyte Esterase,Urine Negative (Negative); Nitrate,Urine Negative (Negative); PH,Urine 5.5 (5.0-8.5); Protein,Urine Negative (Negative); Urobilinogen,Urine 0.2 EU/dl (0.2)
[2021-11-26 17:00] LABS: WBC,Urine Occasional #/hpf (0-3)
--- NOTE | 2021-11-26 17:26 | PC.NURSE ---
meal tray ordered
[2021-11-26 17:34] LABS: Troponin I < 0.01 ng/ml (0.00-0.034)
[2021-11-26 18:21] VITALS: BMI 29.7
[2021-11-26 18:22] LABS: Coronavirus 19, PCR Not Detected (NotDetected); Influenza A, PCR Not Detected (NotDetected); Influenza B, PCR Not Detected (NotDetected)
--- NOTE | 2021-11-26 18:56 | PC.NURSE ---
report called to Elina VICTORIA
[2021-11-26 18:57] VITALS: BP 145/78; PULSE 89; RESP 18; TEMP 36.7; O2SAT 96
--- NOTE | 2021-11-26 19:11 | PC.NURSE ---
patient up to floor via wheelchair @ this time.
[2021-11-26 20:00] VITALS: BP 131/86; PULSE 76; RESP 16; TEMP 36.8; O2SAT 96
[2021-11-26 21:38] LABS: Troponin I < 0.01 ng/ml (0.00-0.034)
[2021-11-26 22:00] LABS: POC Glucose,Bedside 219 (70-110)
[2021-11-27] VITALS: BP 149/67; PULSE 75; RESP 16; TEMP 36.7; O2SAT 95
[2021-11-27 04:00] VITALS: BP 143/72; PULSE 69; RESP 14; TEMP 36.6; O2SAT 92
--- NOTE | 2021-11-27 05:06 | PC.NURSE ---
Pt a + o x4. Pleasant and cooperative t/o shift. Pt c/o pain in left knee 1x t/o night. 650mg Tylenol administered, pt states favorable results. Pts own polar pack in place to left knee. Call light within reach.
[2021-11-27 05:17] LABS: POC Glucose,Bedside 173 (70-110)
[2021-11-27 08:00] VITALS: BP 135/65; PULSE 60; RESP 14; TEMP 37.2; O2SAT 94
[2021-11-27 08:45] LABS: Basophils # 0.1 K/mm3 (0-0.2); Basophils % 1.1 % (0.1-2.0); Eosinophils # 0.1 K/mm3 (0.0-0.4); Eosinophils % 1.5 % (0.1-12.0); Hematocrit 38.3 % (42.0-52.0); Hemoglobin 12.3 g/dL (14.1-18.0); Lymphocytes # 1.1 K/mm3 (0.7-4.5); Lymphocytes % 19.6 % (10-50); Mean Corpuscular HGB Conc 32.2 g/dL (31.8-35.4); Mean Corpuscular Hemoglobin 32.6 pg (27.0-31.2); Mean Corpuscular Volume 101.2 fl (80-94); Mean Platelet Volume 8.9 fl (7.4-10.4); Monocytes # 0.4 K/mm3 (0.1-1.0); Monocytes % 7.8 % (1.7-9.3); Neutrophils # 3.7 K/mm3 (1.8-7.8); Platelet Count 238 K/mm3 (142-424); Red Blood Count 3.79 M/mm3 (4.60-6.20); Red Cell Distribution Width 13.7 % (11.5-17.5); White Blood Count 5.4 K/mm3 (4.8-10.8)
[2021-11-27 08:51] LABS: Chloride 97 mmol/L (98-107); Potassium 3.5 mmoL/L (3.5-5.1); Sodium 137 mmol/L (136-145)
[2021-11-27 08:54] LABS: Anion Gap 9.5 mEq/L (5-15); Blood Urea Nitrogen 21 mg/dl (9-20); Calcium 9.3 mg/dl (8.4-10.2); Carbon Dioxide 34 mmol/L (22.0-30.0); Creatinine Clearance Estimated 78 mL/min (50-200); Estimated Glomerular Filt Rate 65 ml/min (>60); GFR (African American) 78 ML/MIN (>60); Glucose 187 mg/dl (74-100)
--- NOTE | 2021-11-27 09:00 | P.CONPHA_ITS ---
[facility] Pharmacy VTE Monitoring - Patient Demographics Admission date: 11/27/21 Report Date: 11/27/21 Time: 09:01 Allergies/Adverse Reactions: Patient Allergies No Known Allergies Allergy (Verified 11/21/21 06:31) Height: 1.83 m Weight: 99.79 kg Patient Problems: Current Active Problems Status post total left knee replacement (Acute) Pulmonary emboli (Acute) - VTE Risk Labs: VTE Related Lab Results Hgb 12.3 g/dL (14.1-18.0) L 11/27/21 07:30 Hct 38.3 % (42.0-52.0) L 11/27/21 07:30 Plt Count 238 K/mm3 (142-424) 11/27/21 07:30 BUN 21 mg/dl (9-20) H 11/27/21 07:30 Creatinine 1.10 mg/dl (0.66-1.25) 11/27/21 07:30 Estimated Creat Clear 78 mL/min (50-200) 11/27/21 07:30 Clinical Trial Participant: No - Prophylaxis VTE Prophylaxis Ordered?: Yes Types of VTE Prophylaxis: TEDS Knee High, Pharmacological Pharmacologic Type: Other (XARELTO) - VTE Diagnosis Confirmed Treatment or plan recommended: Add ICD and/or TEDs Warfarin counseling provided if indicated?: No (ON XARELTO) Bridge therapy started inpt?: Yes (LOVENOX, THEN XARELTO)
--- NOTE | 2021-11-27 09:04 | HMH.PHAINT ---
home medication list verified using list from [facility]
[2021-11-27 12:03] LABS: POC Glucose,Bedside 176 (70-110)
--- NOTE | 2021-11-27 12:41 | HMH.HPDC ---
General - General Admission date:: 11/26/21 Discharge date: 11/27/21 *Admission Date: 11/27/21 *Chief complaint: SOA, anxious *History of present illness: Mr. Walden is a pleasant 80-year-old male with recent TKA of left knee. Since getting home, he has been on aspirin 325 daily for DVT prophylaxis. Pain medication including hydrocodone. Has felt off since getting home, upset stomach, occasional shortness of breath, new onset anxiety. Given progressive symptoms, he was actually seen in the ER earlier this week. There was question of a PE that was determined not to be present on reread by radiology. Presents today with increased shortness of breath, feeling nauseous, just not feeling right per his report. On work-up in the ER found to have mild electrolyte abnormalities, but repeat CT of his chest concerning this time for multiple subsegmental PEs of right upper lobe. Patient not requiring oxygen. Afebrile. Hemodynamically stable. Admitted to medicine for further management, fluid resuscitation, and monitoring overnight. On evaluation this morning, states he is feeling better after IV fluids. Remains hemodynamically stable, afebrile, on room air. Ambulating with a walker. Ate breakfast without difficulty. No chest pain, no nausea, no vomiting, no diarrhea, pain stable and managed with current p.o. regimen. Morning labs better. [facility] History I have reviewed the patient's past medical history: Yes Medical History: Reports:: Cancer (skin), Diabetes Mellitus Type 2, Hyperlipidemia, Hypertension Denies:: Chronic Obstructive Pulmonary Disease (COPD), Diabetes Mellitus Type 1, Home Oxygen, Internal Pacemaker, MRSA, Seizures *Have you ever received a pneumonia vaccine?: No *Have you received a flu vaccine this season?: No Other Medical History: Reports: Arthritis. Denies: Blood Transfusion Reaction Laterality Cases: Bilateral: Arthroscopy Knee, Other Other Surgeries: Yes: Cancer Surgery, Colonoscopy, Other. No: Pacemaker Amputation: No Fractures: No - *Social History Smoking Status: Former smoker Tobacco Type: cigarettes # Packs/Day (cigarettes): 1 Alcohol Intake: former Alcohol Intake Frequency:: holidays/special occasions only Substance Use Type: denies use *Occupational Status:: retired Housing: house Household Members: spouse *Travel in the last 8 weeks: None Family Hx:: Stroke, Heart Attack, Other, Cancer Review of Systems - Review of Systems Review of systems:: pertinent systems reviewed and negative unless documented below (14 point review of systems performed, pertinent positives and negatives as per HPI) - *Neurologic Reports weakness, Denies headache(s), Denies seizure-like activity Exam Vital signs and Labs for Last 24 Hours: Temp Pulse Resp BP Pulse Ox 98.9 F 60 14 135/65 94 L 11/27/21 08:00 11/27/21 08:00 11/27/21 08:00 11/27/21 08:00 11/27/21 08:00 Laboratory Results - last 24 hr 11/26/21 14:41: Specimen Source R brachial, O2 % Room air, ABG pH 7.52 H, ABG pCO2 27.1 L, ABG pO2 78.7 L, ABG HCO3 21.4 L, ABG Total CO2 22.3 L, ABG O2 Saturation 96, ABG Base Excess -1.5 11/26/21 14:45: Sodium 134 L, Potassium 3.9, Chloride 96 L, Carbon Dioxide 27, Anion Gap 14.9, BUN 21 H, Creatinine 1.00, Estimated Creat Clear 86, Estimated GFR 72, Est GFR ( Amer) 87, Glucose 246 H, Calcium 9.1, Total Bilirubin 1.1, AST 41, ALT 43, Alkaline Phosphatase 65, Troponin I < 0.01, NT-Pro-B Natriuret Pep 37.9, Total Protein 6.5, Albumin 3.7, Globulin 2.8, Albumin/Globulin Ratio 1.3 11/26/21 14:45: WBC 7.3, RBC 3.78 L, Hgb 12.6 L, Hct 37.7 L, MCV 99.7 H, MCH 33.3 H, MCHC 33.4, RDW 13.5, Plt Count 240 D, MPV 8.8, Neut % (Auto) 77.0, Lymph % (Auto) 15.0, [place] % (Auto) 6.3, Eos % (Auto) 0.8, Baso % (Auto) 0.9, Neut # (Auto) 5.6, Lymph # (Auto) 1.1, [place] # (Auto) 0.5, Eos # (Auto) 0.1, Baso # (Auto) 0.1 11/26/21 16:05: Urine Color Yellow, Urine Appearance Clear, Urine pH 5.5, Ur Specific [place] 1.010, Urine Protein Nega
--- NOTE | 2021-11-27 13:29 | PC.NURSE ---
Pt is waiting on a ride
--- NOTE | 2021-11-27 13:30 | PC.NURSE ---
Gave pt take home of turner. Explained to him that he needed to take his 2nd dose tonight since he took one this morning.
--- NOTE | 2021-11-28 14:20 | CARE MANAGER ---
Spoke with patient and she states that patient medication (Xarelto) cost $600 and they cannot afford. [facility] did give the patient 6 pills for $4. Xarelto coupon was forwarded to patient , she states she will investigate coupon and talk with MD.
== END 2021-11-27 14:00 | disposition home or self-care (01) ==
LOC: ER 14:26 → 2ND 18:17
PROVIDERS: Admitting Provider Emergency Medicine; Emergency Provider Emergency Medicine; PCP Internal Medicine Adolescent Medicine; Visit Provider Internal Medicine Adolescent Medicine
DX: I26.94 Multiple subsegmental thrombotic pulmonary emboli without acute cor pulmonale (principal); E11.9 Type 2 diabetes mellitus without complications; E78.5 Hyperlipidemia, unspecified; I10 Essential (primary) hypertension; Z87.891 Personal history of nicotine dependence; Z79.899 Other long term (current) drug therapy; F41.9 Anxiety disorder, unspecified; R06.9 Unspecified abnormalities of breathing; Z20.822 Contact with and (suspected) exposure to COVID-19; Z79.84 Long term (current) use of oral hypoglycemic drugs
CPT/HCPCS: G0378; 36415; 71046; 71275; 80048; 80053; 81001; 82803; 82962; 83880; 84484; 85025; 93005; 99285; C9803; Q9967; U0003; U0005

== ENCOUNTER → 2021-11-30 08:34 | Outpatient (CLI) | payer MEDICARE, SELFPAY ==
--- NOTE | 2021-11-30 | CA_ITS ---
APPROVED REPORT EXAM: Comprehensive 2D, Doppler, and color-flow Echocardiogram Counselor Supervisor: LUIS Rosa, RVS Ht: 6 ft 0 in Wt: 214lbs BSA: 2.19 BP: 135/65 mmHg Indications: SOA, pULMONARY EMBOLI 11/2021 POST RECENT LEFT TOTAL KNEE REPLACEMENT, HTN, DM, HLD 2D Dimensions IVSd 0.91 cm LVEF (Visual) 49.70 % PWd 1.02 cm LA Volume 60.60 mL LVDd 4.91 cm LA Volume Index 27.70 mL/m2 (M/F) 16-34 LVDs 3.67 cm Aortic Root 3.21 cm Left Atrium 4.08 cm LVOT 2.00 cm (M/F) 1.5-2.5 M-Mode Dimensions RVDd 2.04 cm (0.9-2.6) LA Diam 4.16 cm (1.9-4.0) LVDd 5.26 cm (3.5-5.7) Ao Diam 3.16 cm (2.0-3.7) LVDs 4.04 cm (3.5-5.7) IVSd 1.00 cm (0.6-1.1) PWd 1.00 cm (0.6-1.1) EF (Teich) 46.10% EPSs 0.61 cm FS 23.20% EDV (Teich) 133.00 mL TAPSE 2.43 (<1.7) ESV (Teich) 71.70 mL LV Diastology E Decel Time 203.00 (160-240 msec) E/A Ratio 0.49 MED E' 5.60 (< 7 cm/sec) MED A' 13.50 cm/s E'/MED E' Ratio 9.45 (>14) LAT E' 6.00 (<10 cm/sec) LAT A' 12.10 cm/s E/LAT E' Ratio 8.82 (>14) Aortic Valve AO Peak GR. 21.30 mmHg Mitral Valve MV A Velocity 107.00 (40-130 cm/s) E/A Ratio 0.49 MV Decel. Time 203.00 (160-240 ms) MV PHT 63.00 ms Pulmonary Valve PV Peak Velocity 119.00 (50-150 cm/s) Tricuspid Valve TR P. Velocity 236.00 cm/s RAP Estimate 10.00 mmHg RVSP 32.30 mmHg Left Ventricle Left atrium is mildly enlarged, left ventricle is normal size, hyperdynamic left ventricular systolic function, estimated ejection fraction over 65%, with complete cavity obliteration during systole, there is late peaking systolic velocities seen in the left ventricular outflow tract, raising the concerns for presence of dynamic obstruction, resting gradient is not accurately calculated, repeat study with better Doppler technique and Valsalva is recommended. Grade 1 diastolic dysfunction seen without tissue Doppler evidence of raise left atrial pressure. Right Ventricle Right atrium and right ventricle are normal size and contractility. Aortic Valve Aortic valve is grossly normal there is no aortic stenosis or aortic insufficiency. Mitral Valve Mitral valve is grossly normal, there is no obvious systolic anterior motion of the mitral valve leaflets seen, there is trace mitral regurgitation. Tricuspid Valve Tricuspid valve grossly normal, there is trace tricuspid regurgitation, tricuspid regurgitation jet velocity is inadequate for calculation of the right ventricular systolic pressure. Pulmonic Valve Pulmonic valve is poorly visualized. Great Vessels Aortic root is normal size. Inferior vena cava is poorly visualized. Pericardium No significant pericardial effusion noted. Conclusion 1. Technically difficult study, mildly in the left atrium, normal left ventricular size, mild concentric left ventricular hypertrophy, hyperdynamic left ventricular systolic function, visually estimated ejection fraction over 65%, there is complete cavity obliteration during systole, there is increased velocities seen in the left ventricular outflow tract likely secondary to dynamic obstruction, repeat study with better Doppler technique and Valsalva is recommended. There is no obvious systolic anterior motion of the mitral valve leaflets seen. Grade 1 diastolic dysfunction seen without tissue Doppler evidence of raise left atrial pressure. 2. Trace mitral and tric
== END ==
PROVIDERS: PCP Internal Medicine Adolescent Medicine; Visit Provider Internal Medicine Adolescent Medicine
DX: I26.99 Other pulmonary embolism without acute cor pulmonale (principal)
CPT/HCPCS: 93306

== ENCOUNTER 2021-12-02 10:24 | Emergency (ER) | payer MEDICARE, SELFPAY ==
--- NOTE | 2021-12-02 10:36 | HMH.EDUTC ---
[facility] [place] Disposition Clinical Impression: Acute anxiety Disposition: Home, Self-Care Condition on Discharge: Good Instructions: Anxiety Disorders Additional Instructions: Stop taking the pain medications which you believe make you anxious. Follow-up with your primary care doctor in about 3 to 4 days if you still feel anxious. Return to the emergency department if you feel worse in any way. Referrals: Alonso White MD [Primary Care Provider] - Medical Decision Making - Medical Records Medical records reviewed: No: I reviewed the patient's medical records. - Sujit Inquiry Pt receiving controlled substance: No Vital Signs: 12/02/21 10:40 12/02/21 11:07 12/02/21 11:10 Temperature 98.3 F 98.5 F Temperature Source Oral Oral Pulse Rate Pulse Rate [Left] 74 70 Pulse Rate [Orthostatic Lying] 65 Pulse Rate [Orthostatic Sitting] 66 Pulse Rate [Orthostatic Standing] 73 Respiratory Rate 16 16 Blood Pressure Blood Pressure [Orthostatic Lying Left Arm] 145/68 H Blood Pressure [Orthostatic Sitting Left Arm] 152/72 H Blood Pressure [Orthostatic Standing] 151/67 H Blood Pressure [Right Arm] 132/62 138/69 Blood Pressure Mean [Right Arm] 85 92 Blood Pressure Position Blood Pressure Position [Right Arm] Sitting 02 Sat by Pulse Oximetry 97 98 Oxygen Delivery Method Room Air 12/02/21 11:53 Temperature 98 F Temperature Source Oral Pulse Rate 78 Pulse Rate [Left] Pulse Rate [Orthostatic Lying] Pulse Rate [Orthostatic Sitting] Pulse Rate [Orthostatic Standing] Respiratory Rate 16 Blood Pressure 131/78 Blood Pressure [Orthostatic Lying Left Arm] Blood Pressure [Orthostatic Sitting Left Arm] Blood Pressure [Orthostatic Standing] Blood Pressure [Right Arm] Blood Pressure Mean [Right Arm] Blood Pressure Position Sitting Blood Pressure Position [Right Arm] 02 Sat by Pulse Oximetry Oxygen Delivery Method Room Air Orders (Tests/Meds): ED MEDICATIONS Discontinued Medications Generic Name Dose Route Start Last Admin Trade Name Freq PRN Reason Stop Dose Admin Ondansetron HCl 4 mg 12/02/21 11:21 12/02/21 11:30 Ondansetron 4mg Odt SL 12/02/21 11:22 4 mg ONCE [address] Administration [facility] [place] HPI - General Stated complaint: , anxious Time Seen by Provider: 12/02/21 10:36 - History of Present Illness Provider Complaint: He is here c/o worsening anxiety. He denies any si or hi - Related Data Home Medications Medication Instructions Recorded Confirmed metformin 500 mg tablet,extended 1,000 mg PO BIDWMEAL 07/31/19 11/30/21 release 24 hr atorvastatin 10 mg tablet 10 mg PO HS tab 06/14/21 11/30/21 glipizide 10 mg tablet, extended 10 mg PO BID tab 06/14/21 11/30/21 release 24 hr lisinopriL [Lisinopril] 10 mg PO DAILY 11/16/21 11/30/21 Previous Rx's Medication Instructions Recorded Docusate Sodium [Docusate Sodium 100 mg PO BIDP PRN #20 cap 11/22/21 100mg Cap] Hydrocod/Acet 5/325 mg [Louisa 1 tab PO Q4HP PRN #60 tab 11/22/21 5/325mg tablet] ALPRAZolam [Xanax 0.25mg tab] 0.25 mg PO TIDP PRN 3 Days #9 tab 11/27/21 Rivaroxaban [Xarelto 15mg tablet] 15 mg PO BID 17 Days #34 tab 11/27/21 ondansetron HCl 4 mg tablet 4 mg PO Q8H PRN #20 tab 11/30/21 oxycodone-acetaminophen 5 mg-325 1 tab PO Q6H PRN #60 tab 11/30/21 mg tablet Allergies Allergy/AdvReac Type Severity Reaction Status Date / Time No Known Allergies Allergy Verified 12/02/21 10:44 [facility] History - Hepatitis A Screen Attestation statement:: This patient has been screened for Hepatitis A risk factors. I have reviewed the patient's past medical history: Yes Medical History: Reports:: Cancer, Diabetes Mellitus Type 2, Hyperlipidemia, Hypertension Denies:: Chronic Obstructive Pulmonary Disease (COPD), Diabetes Mellitus Type 1, Home Oxygen, Internal Pacemaker, MRSA, Seizures Other Medical History: Reports: Arthritis. Denies: Blood Transfusion Reaction Laterality Ca
[2021-12-02 10:40] VITALS: BP 132/62; PULSE 74; RESP 16; TEMP 36.8; O2SAT 97; BMI 29.8
--- NOTE | 2021-12-02 10:59 | HMH.EDDIZZ ---
ED Disposition Clinical Impression: Acute anxiety Disposition: Home, Self-Care Condition on Discharge: Fair Instructions: Anxiety Disorders Additional Instructions: Stop taking the pain medications which you believe make you anxious. Follow-up with your primary care doctor in about 3 to 4 days if you still feel anxious. Return to the emergency department if you feel worse in any way. Referrals: Alonso White MD [Primary Care Provider] - - Critical Care Critical Care Time: No Attestation: On 12/02/21, the high probability of a clinically significant, sudden or life threatening deterioration of the following system(s) required my full and direct attention, intervention and personal management. The time I documented below is in addition to time spent performing reported procedures but includes the following listed in this critical care notation. Medical Decision Making - Medical Records Medical records reviewed: Yes: I reviewed the patient's medical records. - Sujit Inquiry Pt receiving controlled substance: No Vital Signs: 12/02/21 10:40 12/02/21 11:07 12/02/21 11:10 Temperature 98.3 F 98.5 F Temperature Source Oral Oral Pulse Rate [Left] 74 70 Pulse Rate [Orthostatic Lying] 65 Pulse Rate [Orthostatic Sitting] 66 Pulse Rate [Orthostatic Standing] 73 Respiratory Rate 16 16 Blood Pressure [Orthostatic Lying Left Arm] 145/68 H Blood Pressure [Orthostatic Sitting Left Arm] 152/72 H Blood Pressure [Orthostatic Standing] 151/67 H Blood Pressure [Right Arm] 132/62 138/69 Blood Pressure Mean [Right Arm] 85 92 Blood Pressure Position [Right Arm] Sitting 02 Sat by Pulse Oximetry 97 98 Oxygen Delivery Method Room Air Orders (Tests/Meds): ED MEDICATIONS Discontinued Medications Generic Name Dose Route Start Last Admin Trade Name Freq PRN Reason Stop Dose Admin Ondansetron HCl 4 mg 12/02/21 11:21 12/02/21 11:30 Ondansetron 4mg Odt SL 12/02/21 11:22 4 mg ONCE ONE Administration - Reevaluation(s) Time: 11:19 Reevaluation #1: Orthostatic vital signs were performed and are normal. Patient's oxygen saturations on room air are also normal. Medical Decision Narrative: The patient presents to the emergency department complaining of lightheadedness, nausea, and anxiety. He has a history of anxiety. He believes that the pain medicine is causing him to become more anxious. The patient's orthostatic vital signs are normal. His physical examination is also normal with the exception of postoperative changes in his left knee. The patient has a known pulmonary embolus for which he is taking anticoagulation. His oxygen saturations are normal. I do not believe that the patient requires a further work-up for his anxiety and symptoms. I feel that the patient can be discharged in stable condition with instructions to follow-up with his primary care physician if his anxiety does not improve after having stopped the pain medication for which she thinks is responsible for his symptoms. Dizzy HPI - General Stated Complaint: post-op 11/26, anxious Time Seen by Provider: 12/02/21 10:59 Mode of Arrival: Ambulatory Source of Information: Patient, Spouse Description of Symptoms (Recalled from ER Triage Doc. by RN): patient comes in today for anxiety. patient had right knee surgery recently. and was prescribed hydrocodone for the pain. since patient began taking the medication he has been having anxiety related symptoms. - History of Present Illness HPI Narrative: The patient was sent to the emergency department for evaluation from the urgent treatment center. The patient complains of anxiety and nausea and lightheadedness after having taken some pain medication. He has a known pulmonary embolus for which she is on Xarelto. He had total knee replacement surgery on the left side approximately 2 weeks ago. MD complaint: dizziness - Related Data Home Medications Medication Ins
--- NOTE | 2021-12-02 11:00 | PC.NURSE ---
FRANCHESCA LEDEZMA at
[2021-12-02 11:07] VITALS: BP 138/69; PULSE 70; RESP 16; TEMP 36.9; O2SAT 98; BMI 29.8
[2021-12-02 11:10] VITALS: BP 145/68; BP 151/67; BP 152/72; PULSE 65; PULSE 66; PULSE 73
[2021-12-02 11:53] VITALS: BP 131/78; PULSE 78; RESP 16; TEMP 36.6; O2SAT 98
== END 2021-12-02 11:54 | disposition home or self-care (01) ==
LOC: UTC 10:40 → ER 10:54
PROVIDERS: Emergency Provider Emergency Medicine; PCP Internal Medicine Adolescent Medicine
DX: F41.9 Anxiety disorder, unspecified (principal); R11.0 Nausea; R42 Dizziness and giddiness; Z86.711 Personal history of pulmonary embolism; Z79.01 Long term (current) use of anticoagulants; I10 Essential (primary) hypertension; E11.9 Type 2 diabetes mellitus without complications
CPT/HCPCS: 99283

== ENCOUNTER → 2021-12-06 10:11 | Outpatient (CLI) | payer MEDICARE, SELFPAY ==
--- NOTE | 2021-12-06 10:18 | XR_ITS ---
FINAL REPORT CLINICAL HISTORY: s p lt knee TKA 11/21/2021..PAIN COMPARISON: November 21, 2021 FINDINGS: LEFT KNEE: Three views of the left knee were obtained. There are postoperative changes from knee arthroplasty. Many antibiotic beads have been removed. There are widespread soft tissue calcifications, some posteriorly could represent antibiotic beads. IMPRESSION: Postoperative changes with no acute bony abnormality. Reviewed, Interpreted and Dictated by Huber Olivier III, MD Transcribed by Cinda Rodgers Authenticated and . [facility]
== END ==
PROVIDERS: PCP Internal Medicine Adolescent Medicine; Visit Provider Orthopaedic Surgery
DX: M17.12 Unilateral primary osteoarthritis, left knee (principal)
CPT/HCPCS: 73562

== ENCOUNTER → 2021-12-12 13:17 | Outpatient (REF) | payer MEDICARE, SELFPAY ==
[2021-12-12 13:33] LABS: Microscopic, Urine URINE MICROSCOPIC (MICROSCOPIC)
[2021-12-12 13:36] LABS: Appearance,Urine CLEAR (Clear); Bilirubin,Urine Negative (Negative); Blood, Urine Negative (Negative); Color,Urine YELLOW (Yellow); Glucose,Urine (UA) Negative (Negative); Ketones,Urine Negative (Negative); Leukocyte Esterase,Urine Negative (Negative); Nitrate,Urine Negative (Negative); PH,Urine 5.5 (5.0-8.5); Protein,Urine Negative (Negative); Specific Gravity, Urine >= 1.030 (1.005-1.030); Urobilinogen,Urine 0.2 EU/dl (0.2)
[2021-12-12 13:53] LABS: Amorphous Sediment,Urine 4+ /lpf; Bacteria,Urine 4+ /lpf
== END ==
LOC: LAB.DROPOF 13:17
PROVIDERS: Visit Provider Nurse Practitioner Family
DX: N39.0 Urinary tract infection, site not specified (principal)
CPT/HCPCS: 81001; 87086; 87088; 87186

== ENCOUNTER → 2021-12-20 08:59 | Outpatient (CLI) | payer MEDICARE, SELFPAY ==
--- NOTE | 2021-12-20 09:12 | XR_ITS ---
FINAL REPORT CLINICAL HISTORY: s/p LT TKA COMPARISON: December 06, 2021 FINDINGS: Three views of the left knee reveal no evidence of fracture or dislocation. Again seen is left knee arthroplasty. There are multiple soft tissue calcifications again seen some which could represent antibiotic beads posteriorly. IMPRESSION: Postoperative changes. Overall stable appearance. Reviewed, Interpreted and Dictated by Huber Olivier III, MD Transcribed by Guru Jiang Authenticated and [facility]
== END ==
PROVIDERS: PCP Internal Medicine Adolescent Medicine; Visit Provider Orthopaedic Surgery
DX: Z96.652 Presence of left artificial knee joint (principal); M25.562 Pain in left knee
CPT/HCPCS: 73562

== ENCOUNTER → 2022-01-17 09:16 | Outpatient (CLI) | payer MEDICARE, SELFPAY ==
--- NOTE | 2022-01-17 09:24 | XR_ITS ---
FINAL REPORT CLINICAL HISTORY: s/p lt TKA COMPARISON: 12/20/2021 FINDINGS: LEFT KNEE: Three views of the left knee were obtained. There are postoperative changes from knee arthroplasty. There is no acute fracture. There is no joint effusion. There are widespread soft tissue calcifications. IMPRESSION: Postoperative change with widespread soft tissue calcifications which are visually stable. Reviewed, Interpreted and Dictated by Huber Olivier III, MD Transcribed by Cinda Rodgers Authenticated and [facility]
== END ==
PROVIDERS: PCP Internal Medicine Adolescent Medicine; Visit Provider Physician Assistant Surgical
DX: Z96.652 Presence of left artificial knee joint (principal); M25.562 Pain in left knee
CPT/HCPCS: 73562

== ENCOUNTER → 2022-02-15 10:20 | Outpatient (CLI) | payer MEDICARE, SELFPAY ==
--- NOTE | 2022-02-15 10:25 | XR_ITS ---
FINAL REPORT CLINICAL HISTORY: s/p lt TKA COMPARISON: January 17, 2022 FINDINGS: LEFT KNEE Three views of the left knee were obtained. There are postoperative changes from left knee arthroplasty. There is no acute fracture or dislocation. There is no joint effusion. Multiple soft tissue calcifications are again noted. IMPRESSION: Overall stable exam. Reviewed, Interpreted and Dictated by Huber Olivier III, MD Transcribed by Cinda Rodgers Authenticated and [facility]
== END ==
PROVIDERS: PCP Internal Medicine Adolescent Medicine; Visit Provider Orthopaedic Surgery
DX: Z96.652 Presence of left artificial knee joint (principal); M25.562 Pain in left knee
CPT/HCPCS: 73562

== ENCOUNTER → 2023-02-06 10:45 | Outpatient (POV) | payer MEDICARE, SELFPAY | PROVIDERS: Visit Provider Dermatology | DX: Z00.00 Encounter for general adult medical examination without abnormal findings (principal) ==

== ENCOUNTER 2023-08-14 15:19 | Outpatient (POV) | payer MEDICARE, SELFPAY | END 2023-08-14 23:59 | disposition home or self-care (01) | LOC: SC 15:19 | PROVIDERS: PCP Internal Medicine Adolescent Medicine; Visit Provider Dermatology | DX: Z00.00 Encounter for general adult medical examination without abnormal findings (principal) ==

== ENCOUNTER 2024-02-25 13:26 | Outpatient (CLI) | payer MEDICARE, SELFPAY ==
--- NOTE | 2024-02-25 13:26 | US_ITS ---
FINAL REPORT CLINICAL HISTORY: Renal stones. FINDINGS: ULTRASOUND URINARY BLADDER The urinary bladder measures 7.6 x 4.8 x 5.8 cm. Prevoid bladder volume is 114.19 mL. Postvoid bladder volume is 22.11 mL. Bilateral ureteral jets are visualized. IMPRESSION: Unremarkable exam. Reviewed, Interpreted and Dictated by Oanh Zaldivar MD Transcribed by Samia Iniguez Authenticated and [facility]
--- NOTE | 2024-02-25 13:26 | US_ITS ---
FINAL REPORT CLINICAL HISTORY: kidney stones FINDINGS: RENAL ULTRASOUND Ultrasound images of the kidneys were obtained. Limited images of the liver parenchyma demonstrates increased echogenicity compatible with fatty infiltration. The right kidney measures 11.1 cm in length. It is normal echogenicity. There is no hydronephrosis. The left kidney measures 11.7 cm in length. It is normal echogenicity. There is no hydronephrosis. IMPRESSION: Normal renal ultrasound. Reviewed, Interpreted and Dictated by Oanh Zaldivar MD Transcribed by Samia Iniguez Authenticated and [facility]
--- NOTE | 2024-02-25 13:26 | XR_ITS ---
FINAL REPORT CLINICAL HISTORY: stones pain when urinating COMPARISON: None FINDINGS: The visualized intestinal gas pattern appears unremarkable without evidence to suggest obstruction. No radiopaque renal stone is identified. Pelvic calcifications are most likely phleboliths. IMPRESSION: No radiopaque renal stone. Reviewed, Interpreted and Dictated by Oanh Zaldivar MD Transcribed by Marita Willard Authenticated and [facility]
[2024-02-25 14:31] LABS: Blood Urea Nitrogen 16 mg/dl (9-20); Estimated Glomerular Filt Rate 72 ml/min (>60); GFR (African American) 87 ML/MIN (>60)
== END 2024-02-25 23:59 | disposition home or self-care (01) ==
LOC: RAD 13:26
PROVIDERS: PCP Nurse Practitioner Family; Visit Provider Urology
DX: N20.0 Calculus of kidney (principal)
CPT/HCPCS: 36415; 74018; 76770; 76857; 82565; 84520

== ENCOUNTER 2024-10-02 09:03 | Outpatient (CLI) | payer MEDICARE, SELFPAY ==
--- NOTE | 2024-10-02 09:09 | XR_ITS ---
FINAL REPORT CLINICAL HISTORY: LBP, CHRONIC PAIN COMPARISON: None FINDINGS: LUMBOSACRAL SPINE SERIES Five views of the lumbosacral spine were obtained. There is a 30% compression deformity of L2. There are moderate advanced hypertrophic changes of degenerative disc disease throughout the lumbar spine. Disc space narrowing is particularly evident at the L3-4 through L5-S1 levels. IMPRESSION: 30% compression deformity L2. Degenerative changes as above. Reviewed, Interpreted and Dictated by Iván Herrera MD Transcribed by Marita Willard Authenticated and [facility]
== END 2024-10-02 23:59 | disposition home or self-care (01) ==
LOC: RAD 09:05
PROVIDERS: PCP Nurse Practitioner Family; Visit Provider Nurse Practitioner Family
DX: G89.29 Other chronic pain (principal); M54.50 Low back pain, unspecified
CPT/HCPCS: 72110

== ENCOUNTER 2024-10-16 09:39 | Outpatient (CLI) | payer MEDICARE, SELFPAY ==
--- NOTE | 2024-10-16 09:43 | MR_ITS ---
FINAL REPORT CLINICAL HISTORY: COMPRESSION FX OF L2/DDD. right sided low back pain. no injury or trauma. symptoms x1yr FINDINGS: Multiplanar MR imaging of the lumbar spine was performed without contrast. On the sagittal T2-weighted images, abnormal decreased signal is seen from at L2-3 to L5-S1. There is moderate loss of height at L3-4, L4-5, and L5-S1. There is mild indentation at the superior endplate of L2 which appears chronic. There is no associated marrow edema. The vertebral alignment is normal. T12-L1: There is no significant canal stenosis or neuroforaminal narrowing. L1-2: There is no significant canal stenosis or neural foraminal narrowing. L2-3: Mild diffuse disc bulge with endplate hypertrophy. Mild to moderate bilateral neuroforaminal narrowing. L3-4: Mild to moderate diffuse disc bulge with endplate hypertrophy, eccentric to the right and left. Moderate bilateral neuroforaminal narrowing. L4-5: Mild diffuse disc bulge with bilateral facet hypertrophy. Mild to moderate left neuroforaminal narrowing. L5-S1: Diffuse disc bulge with moderate right neuroforaminal narrowing. IMPRESSION: Diffuse changes of degenerative disc disease with neuroforaminal narrowing bilaterally at L3-4 and on the right at L5-S1. Reviewed, Interpreted and Dictated by Iván Herrera MD Transcribed by Maris Don Authenticated and [facility]
== END 2024-10-16 23:59 | disposition home or self-care (01) ==
LOC: RAD 09:40
PROVIDERS: PCP Nurse Practitioner Family; Visit Provider Nurse Practitioner Family
DX: S32.020A Wedge compression fracture of second lumbar vertebra, initial encounter for closed fracture (principal); M51.369 Other intervertebral disc degeneration, lumbar region without mention of lumbar back pain or lower extremity pain; M99.73 Connective tissue and disc stenosis of intervertebral foramina of lumbar region
CPT/HCPCS: 72148

== ENCOUNTER 2024-10-22 10:00 | Outpatient (RCR) | payer MEDICARE, SELFPAY ==
--- NOTE | 2024-10-13 10:50 | HMH.PTOPEV ---
PT Outpatient Evaluation Rehab PT Outpatient Evaluation Start: 10/13/24 09:55 Freq: Status: Active Protocol: Document 10/13/24 09:55 BINA (Rec: 10/13/24 10:49 BINA [id number]) E-signed By Brenden Paige, PT Outpatient Therapy Subjective History Subjective History Pt is an 83 yom who presents to [facility] outpatient PT with complaints of R sided LBP that has been ongoing for approximately 1 year. He reports that he does not remember any incident that would coincide with the beginning of the pain. He reports that he thought he had Parkinson's because of the way he had been walking. Reports that he is scheduled for an MRI on of this week. Pt reports that his pain will occasionally go into his R buttock. Reports a lot of difficulty with getting out of bed and getting up from a chair. Pt reports that he does almost all of the cooking/ cleaning for him and his , which has become increasingly difficult. Pt reports that he has had 1 fall in the 6 months, and he occasionally has difficulty with his balance. PMH: HTN, T2DM, GERD New diagnosis of cancer in past 12 No months? Chief Complaint Pain,Stiff Symptom Type Ache,Sharp,Dull Symptoms Relieved By Prescription Meds Symptoms Aggravated By Sitting,Standing,Bending/ Stooping,Walking,Lifting Prior Functional Limitations None Current Functional Limitations Lifting,Housework,Sleeping, Standing,Sitting,Squatting, Walking Symptom Description Constant but Variable,Activity Dependent Level of pain today (0-10) 5 Pain scale - at its best (0-10) 3 Pain scale - at its worst (0-10) 9 Lumbopelvic Eval Posture Thoracic Spine Posture Standing Position Increased Kyphosis Lumbar Spine Posture Standing Position Flexed Gait Observation General Gait Pattern Observation Antalgic Gait,Hips Posterior to DEIDRE Palapation tenderness bilateral lumbar spinal tenderness Yes: 4/4 TTP to L2-L4 SP paraspinal tenderness Yes: 4/4 TTP to L2-L4 PS on R Lumbar/Sacral Palpation Findings Tenderness,Trigger Point, Muscle Guarding Accessory Movement L2 right L3 right L4 right Range of Motion Lumbar Spine Active Flexion Range of 40 Motion (degrees) Lumbar Spine Active Extension Range of 0 Motion (degrees) Left Lumbar Spine Lateral Flexion Active 20 Range of Motion (degrees) Right Lumbar Spine Lateral Flexion 10 Active Range of Motion (degrees) Lumbar Spine ROM Limitations Soft Tissue Tightness,Pain Manual Muscle Test Bilateral Knee Extension Strength Grade 3+ Fair+ Knee Flexion Strength Grade 4- Good- Hip Flexion Strength Grade 2 Poor Hip Abduction Strength Grade 2 Poor Hip Adduction Strength Grade 2 Poor Hip External Rotation Strength Grade 2+ Poor+ Hip Internal Rotation Strength Grade 2+ Poor+ Hip Extension Strength Grade 2+ Poor+ DTR Rt Patellar 1+ Lt Patellar 1+ Rt Gastroc/Soleus 1+ Lt Gastroc/Soleus 1+ Altered Sensation Bilateral Comment Intact to LT globally Special Tests Lumbar Spine Screen Positive Forward Bending Test- Standing Positive Right Forward Bending Test- Sitting Positive Right Hip Scouring (Quadrant) Test Positive Right Hip Behzad (ANTHONY) Test Positive Right Sciatic Nerve Tension Test Positive Right Crossed Straight Leg Raise Test Positive Left Oswestry Index Section 1 Pain Intensity The pain comes and goes and is moderate Section 2 Personal Care (Washing,Dresing) increase the pain, but I manage not to change my way of doing it Section 3 Lifting lifting heavy weights off the floor, but I can manage if they are Section 4 Walking I cannot walk at all without increasing pain Section 5 Sitting Pain prevents me from sitting for more than one hour Section 6 Standing I cannot stand more than 10 minutes without increasing pain Section 7 Sleeping Because of my pain, my normal night's sleep is less than 4 hours Section 8 Social Life Pain has restricted my social life to my home Section 9 Traveling I get extra pain while traveling, but it does not compel me to seek al Section 10 Changing Degreee of Pain My pain is gradually getting worse Score and Risk Level Oswestry Sc 31 Oswestry Risk Level Severe Disability Miscellaneous Dx PT Eval Objective Objective TS: 5s R, 8s L Moderate Tightness into Passive IR and Passive ER of R hip. Outpatient Therapy Assessment Impairments Problems/Impairmments Palpation Tenderness,Impaired Range of Motion,Impaired Strength,Impaired Gait Pattern ,Impaired Walking,Impaired Standing,Impaired Sitting, Impaired Lifting,Impaired Household Care,Impaired Squatting,Impaired Bending, Impaired Balance,Subjective C/ O Pain Prognosis Rehab Potential Good Comment w HEP Compliance Clinical Impression Consistent with Diagnosis Yes Consistent with LBP with mobility deficits Additional details: Pt presents with signs and symptoms of LBP with mobility deficits. He demonstrates palpable muscle guarding and trigger points of his Lumbar paraspinals on the R side, as well as moderate tightness in his R hip musculature. Pt also presents with global weakness throughout his Lower extremities, bilaterally. Skilled PT is indicated for this pt to promote a return to his PLOF and to address his current impairments. Short Term Goals Number of Weeks 4 Decreased Palpation Tenderness Yes: 2-3/4 to TTP assessment above Increase Range of Motion Yes: improve Lumbar flexion to 50, extension to 5 Increase Strength Yes: 3+/5 to B LEs Increase Ability to Walk Yes: 10 minutes without increasing pain Increase Ability to Stand Yes: 15 minutes without increasing pain Improve Balance Yes: TS on even surface for [address] Improve Oswestry Score Yes: <25 Decrease Subjective C/O Pain Yes: 5/10 with above assessment Patient to be Ind w/ HEP Yes Shelter Goals Number of Weeks 8 Decreased Palpation Tenderness Yes: 0-1/4 to TTP assessment above Increase Range of Motion Yes: Improve Lumbar flexion to 60, extension to 10 Increase Strength Yes: 4-4+/5 to B LEs Improve Gait Pattern without Assistive Yes: Upright posture during Device gait Increase Ability to Walk Yes: 20 minutes without increasing pain to demonstrate ability to grocery shop Increase Ability to Stand Yes: 30 minutes without increasing pain Restore Ability to Lift Objects to Waist Yes: 10# to demonstrate Level ability to lift laundry basket Improve Ability For Household Care Yes: Able to cook/clean house without increasing symptoms Improve Oswestry Score Yes: <20 Decrease Subjective C/O Pain Yes: 2-3/10 with above assessment Patient to be Ind w/ Advanced HEP Yes Outpatient Therapy Plan of Care Treatment Plan May Include Therapeutic Exercise Including Home Yes Exercise Program Manual Therapy Techniques Yes Neuromuscular Re-education Yes Therapeutic Activities to Return to Yes Previous Functional/Work Level Gait Training Yes ADL/Self Care Education Yes Dry Needling Yes Thermal Modalities Yes Electrical Stimulation Yes Massage Yes Manual Lymphatic Drainage Yes Eval/Re-Eval Yes Frequency Times per week 2 Duration Number of Weeks 8 Addendums This patient is a candidate for social No or vocational rehab? Patient/Guardian verbally acknowledges Yes understanding of treatment program and consents to further treatment? Patient/Guardian verbally acknowledges Yes understanding of diagnosis, prognosis and goals for treatment? Eval Complexity PT Charges 88254 - Moderate Complexity Shoulder/Elbow Eval Shoulder Objective Measurements Elbow Objective Measurements PHYSICIAN CERTIFICATION: I certify the specified therapy services for Fito Walden are required, authorized, and reviewed every 30 days.
== END 2024-10-22 23:59 | disposition home or self-care (01) ==
LOC: PT 10:00
PROVIDERS: PCP Nurse Practitioner Family; Visit Provider Nurse Practitioner Family
DX: G89.29 Other chronic pain (principal); M54.50 Low back pain, unspecified
CPT/HCPCS: 97110; 97163; 97530